=== PATIENT | male | born 1940 | race Caucasian/White ===

== ENCOUNTER 2017-07-05 22:18 | Inpatient (IN) | payer MEDICARE ==
--- NOTE | 2017-07-05 23:03 | ED Physician Chart ---
ED Chief Complaint/HPI - Patient Information Date Seen:: 07/05/17 Time Seen:: 22:50 Chief Complaint:: increasing confusion and generalized weakness History of Present Illness:: The patient reportedly has had increasing confusion and generalized weakness at his correction facility and was sent here for evaluation. Urinalysis of 3 days ago showed more than 100 WBCs and 10-25 RBCs in the urine. The bacteria was sensitive to Rocephin. Allergies:: Allergies Allergy/AdvReac Type Severity Reaction Status Date / Time hydromorphone [From Dilaudid] Allergy Verified 07/05/17 22:41 morphine Allergy Verified 07/05/17 22:41 Vitals:: Vital Signs - 8 hr 07/05/17 22:20 Temp 96.1 F HR 70 RR 18 BP 112/64 O2 Sat % 97 Historian:: Patient ED Review of Systems - Review of Systems General/Constitutional: No fever, No chills, No weight loss, Weakness, No diaphoresis, No edema, No loss of appetite Skin: No skin lesions, No rash, No bruising Head: No headache, No light-headedness Eyes: No loss of vision, No pain, No diplopia ENT: No earache, No nasal drainage, No sore throat, No tinnitus Neck: No neck pain, No swelling, No thyromegaly, No stiffness, No mass noted Cardio Vascular: No chest pain, No palpitations, No PND, No orthopnea, No edema Pulmonary: No SOB, No cough, No sputum, No wheezing GI: No nausea, No vomiting, No diarrhea, No pain, No melena, No hematochezia, No constipation, No hematemesis G/U: No dysuria, No frequency, No hematuria Musculoskeletal: No bone or joint pain, No back pain, No muscle pain Endocrine: No polyuria, No polydipsia Psychiatric: No prior psych history, No depression, No anxiety, No suicidal ideation Hematopoietic: No bruising, No lymphadenopathy Allergic/Immuno: No urticaria, No angioedema Neurological: No syncope, No focal symptoms, No weakness, No paresthesia, No headache, No seizure, No dizziness, Confusion, No vertigo ED Past Medical History - Past Medical History Past Medical History: HTN, DM, Asthma/COPD, Other (hyperlipidemia) Family History: None Social History: Non Smoker, No Alcohol Surgical History: other (prostate) Medication: Reviewed Family Medical History - Family Member Mother History Unknown: Yes ED Physical Exam - Physical Examination General/Constitutional: Well-developed, well-nourished, Alert, No distress Other Gen/Cons comments:: Patient is alert and oriented to the correct date Head: Atraumatic Eyes: Lids, conjuctiva normal, PERRL Skin: Nl inspection, No rash, No skin lesions, No ecchymosis, Well hydrated, No lymphadenopathy ENMT: External ears, nose nl, TM canals nl, Nasal exam nl, Lips, teeth, gums nl Neck: No nuchal rigidity Respiratory: Nl effort/Exclusion, Clear to Auscultation Cardio Vascular: RRR, No murmur, gallop, rubs, NL S1 S2 GI: No tenderness/rebounding/guarding : No CVA tenderness Extremities: Normal digits & nails Neuro/Psych: No focal deficits ED Labs/Radiology/EKG Results - Lab Results Comments:: Laboratory Results - last 24 hr 07/05/17 23:55 WBC 29.0 H* RBC 4.27 Hgb 11.4 L Hct 34.0 L MCV 79.7 L MCH 26.7 L MCHC Differential 33.5 RDW 15.6 Plt Count 257 MPV 6.5 - Radiology Results Results: Chest x-ray normal except for presence of a pacemaker - EKG Interpretations Rate & Rhythm: normal sinus rhythm with a rate of 73 Saline: normal Comments:: No ST or T-wave changes ED Septic Shock - . Is Septic Shock (SBP<90, OR Lactate>4 mmol\L) present?: No - <6hrs of presentation: Vital Signs: Vital Signs - 8 hr 07/05/17 22:20 Temp 96.1 F HR 70 RR 18 BP 112/64 O2 Sat % 97 ED Reassessment (Disposition) - Reassessment Reassessment Condition:: Unchanged - Diagnosis Diagnosis:: Urinary tract infection; leukocytosis - Patient Disposition Admitted to:: Med/Surg Spoke to:: Catalina Castaneda Admitting Medical Physician:: Catalina Castaneda Condition at Disposition:: Stable, Unchanged
[2017-07-06 00:07] LABS: HEMOGLOBIN 11.4 gm/dL (12-16); MANUAL DIFF REQUIRED? YES; MEAN CELL VOLUME 79.7 fl (80-99); MEAN CORPUSCULAR HEMOGLOBIN 26.7 pg (27.0-31.0); MEAN CORPUSCULAR HGB CONC 33.5 pg (28.0-36.0); MEAN PLATELET VOLUME 6.5 fl; PLATELET COUNT 257 Th/cmm (150-400); RED BLOOD COUNT 4.27 Mil/cmm (3.80-5.80); RED CELL DISTRIBUTION WIDTH 15.6 % (11.5-20.0)
[2017-07-06 00:22] LABS: URINE MICROSCOPIC INDICATED? YES; URINE SOURCE FOLEY PORT
[2017-07-06 00:26] LABS: ANION GAP 16.8 (7.0-16.0); BUN - UREA NITROGEN 35 mg/dL (7-25); CALCIUM SERUM 9.5 mg/dL (8.6-10.3); CARBON DIOXIDE 25.1 mEq/L (21.0-31.0); CHLORIDE 91 mEq/L (98-107); CREATININE - SERUM 1.9 mg/dL (0.7-1.3); POTASSIUM SERUM 4.9 mEq/L (3.5-5.1); SODIUM SERUM 128 mEq/L (136-145)
[2017-07-06] MEDS ORDERED: cefTRIAXone 1 GM in Sodium Chloride 0.9% 50 ML IV ONE (00:37)
[2017-07-06 00:39] LABS: URINE BILIRUBIN NEGATIVE (NEGATIVE); URINE BLOOD LARGE (NEGATIVE); URINE GLUCOSE (UA) >=1000 mg/dL (NEGATIVE); URINE KETONE TRACE mg/dL (NEGATIVE); URINE LEUKOCYTE ESTERASE MODERATE (NEGATIVE); URINE NITRATE POSITIVE (NEGATIVE); URINE PROTEIN 100 mg/dL (NEGATIVE); URINE UROBILINOGEN 0.2 E.U./dL (0.2 - 1.0)
[2017-07-06 00:42] LABS: GLUCOSE 480 mg/dL (70-105)
[2017-07-06 00:50] LABS: URINE CLARITY HAZY (CLEAR); URINE COLOR YELLOW
[2017-07-06] MEDS ORDERED: Sodium Chloride 0.9% 1,000 ML IV ONE ×2 (00:52→06:51)
[2017-07-06] MEDS ORDERED: INSULIN HUMAN REGULAR 100 UNITS/ML UNIT SUBQ ONE ×2 (00:53→02:11)
[2017-07-06 00:58] LABS: URINE WBC >100 /hpf (0-5)
[2017-07-06 00:59] LABS: URINE BACTERIA MODERATE /hpf (NONE SEEN); URINE EPITHELIAL CELLS FEW /lpf (FEW)
[2017-07-06 01:06] LABS: BAND NEUTROPHILE 4 % (0-10); LYMPHOCYTE 10 % (20-50); NEUTROPHILS 86 % (40-80); PLATELET ESTIMATE ADEQUATE (NORMAL); TOTAL CELLS COUNTED 100
[2017-07-06] MEDS ORDERED: INSULIN ASPART, RECOMBINANT 100 UNITS/ML SUBQ ONE (01:06)
[2017-07-06] MEDS ORDERED: INSULIN HUMAN REGULAR 100 UNITS/ML UNIT ONE ×2 (01:16→02:16)
[2017-07-06] MEDS ORDERED: Influenza Vaccine 0.5 mL Syr IM ONE (03:34)
[2017-07-06] MEDS ORDERED: Pneumococcal Vaccine 0.5 mL Vial IM ONE (03:34)
[2017-07-06 03:35] VITALS: BP 101/57
[2017-07-06 06:20] LABS: BASOPHILE ABSOLUTE 0.1 Th/cumm (0-0.2); HEMOGLOBIN 10.2 gm/dL (12-16); MEAN PLATELET VOLUME 6.5 fl
[2017-07-06 06:26] LABS: ANION GAP 12.9 (7.0-16.0); BUN - UREA NITROGEN 34 mg/dL (7-25); CALCIUM SERUM 9.1 mg/dL (8.6-10.3); CARBON DIOXIDE 26.5 mEq/L (21.0-31.0); CHLORIDE 96 mEq/L (98-107); CREATININE - SERUM 1.8 mg/dL (0.7-1.3); POTASSIUM SERUM 4.4 mEq/L (3.5-5.1); SODIUM SERUM 131 mEq/L (136-145)
[2017-07-06 06:27] LABS: % BASOPHILS 0.4 % (0.0-2.0); % LYMPHOCYTES 4.3 % (20.0-50.0); % NEUTROPHILS 86.1 % (40.0-80.0); HEMATOCRIT 30.5 % (41.0-60); LYMPHOCYTE ABSOLUTE 0.9 Th/cmm (1.5-3.0); MEAN CELL VOLUME 78.6 fl (80-99); MEAN CORPUSCULAR HEMOGLOBIN 26.4 pg (27.0-31.0); MEAN CORPUSCULAR HGB CONC 33.5 pg (28.0-36.0); MONOCYTE ABSOLUTE 1.9 Th/cmm (0.3-1.0); NEUTROPHILE ABSOLUTE 17.8 Th/cmm (1.8-8.0); PLATELET COUNT 262 Th/cmm (150-400); RED BLOOD COUNT 3.89 Mil/cmm (3.80-5.80); RED CELL DISTRIBUTION WIDTH 15.9 % (11.5-20.0)
[2017-07-06 06:29] LABS: GLUCOSE 263 mg/dL (70-105)
[2017-07-06 06:33] LABS: % EOSINOPHILS 0.1 % (0.0-5.0); % MONOCYTES 9.1 % (2.0-10.0); WHITE BLOOD COUNT 20.7 Th/cmm (4.8-10.8)
[2017-07-06] MEDS: Albuterol Nebulizer 2.5mg/3mL HHN SCH ×5 (07:54→23:31)
[2017-07-06] MEDS ORDERED: Azithromycin 500 mg in 0.9% NS 250 mL IV ONE (08:00)
[2017-07-06] MEDS ORDERED: Magnesium Hydroxide (MOM) 30 mL UDC PO PRN (08:17)
[2017-07-06] MEDS ORDERED: Fleet Enema 135 mL RC PRN (08:17)
[2017-07-06] MEDS ORDERED: Dextrose 50% 50 mL Abboject IVP PRN (08:17)
[2017-07-06] MEDS ORDERED: GLUCAGON HCl 1 MG KIT IM PRN (08:17)
--- NOTE | 2017-07-06 08:19 | Diagnostic Imaging Report ---
Portable chest x-ray Time: 2348 hours History: Pneumonia Allowing for portable technique the heart size is normal. No focal pulmonary parenchymal processes. No hilar or mediastinal abnormalities. Left shoulder prosthesis is noted. Aortic arch calcified. Impression: No acute abnormalities.
[2017-07-06] MEDS: Ferrous Sulfate 325 MG TAB PO SCH (10:08)
[2017-07-06] MEDS: Pantoprazole 40 mg EC Tab PO SCH (10:09)
[2017-07-06] MEDS: Sodium Chloride 0.9% 1,000 ML IV SCH (10:11)
[2017-07-06] MEDS ORDERED: INSULIN ASPART, RECOMBINANT 100 UNITS/ML SUBQ SCH ×2 (11:30→12:00)
[2017-07-06] MEDS ORDERED: INSULIN ASPART SLIDING SCALE 100 UNITS/ML UNIT SUBQ SCH ×2 (13:03→16:30)
[2017-07-06] MEDS: INSULIN ASPART SLIDING SCALE 100 UNITS/ML UNIT SUBQ SCH ×3 (13:39→21:10)
--- NOTE | 2017-07-06 16:19 | Consultation ---
Consult Note - Consult Note Service Date: 07/06/17 Referring Physician: Catalina Castaneda Consult Note: PHYSICIAN Consultation Note: Date of Admission: 07/06/17 Purpose of Consultation: Chief Complaint: Patient MABLE PARKINSON was admitted to location Medical/ Surgical Unit I with UTI. History of Present Illness: Patient is a 77-year-old male with a past medical history hypertension, diabetes mellitus type 2, COPD, hyperlipidemia, prostate cancer treated at [facility]. No visible brought to the ER for further evaluation and management as patient had developed the hematuria. Patient also complained of fever and chills. Patient was diagnosed to have UTI and sepsis. He was started on Rocephin and Zithromax. ID consult was called for antibiotic management. Past Medical History: hypertension, diabetes mellitus type 2, COPD, hyperlipidemia, prostate cancer Allergies Allergy/AdvReac Type Severity Reaction Status Date / Time hydromorphone [From Dilaudid] Allergy Verified 07/05/17 22:41 morphine Allergy Verified 07/05/17 22:41 Vital Signs Temp 100.7 F 07/06/17 06:00 Pulse 66 07/06/17 14:26 Resp 18 07/06/17 14:26 BP 146/73 07/06/17 10:08 Pulse Ox 98 07/06/17 14:26 Intake & Output 07/05/17 07/06/17 07/06/17 18:59 06:59 18:59 Output Total 450 Balance -450 Weight (lbs) 90.718 kg 90.718 kg Output: Urine 450 Laboratory Results - last 24 hr 07/06/17 07/06/17 07/06/17 05:35 05:35 05:35 WBC 20.7 H* RBC 3.89 Hgb 10.2 L Hct 30.5 L MCV 78.6 L MCH 26.4 L MCHC Differential 33.5 RDW 15.9 Plt Count 262 MPV 6.5 Neutrophils % 86.1 H Lymphocytes % 4.3 L Monocytes % 9.1 Eosinophils % 0.1 Basophils % 0.4 Sodium 131 L Potassium 4.4 Chloride 96 L Carbon Dioxide 26.5 Anion Gap 12.9 BUN 34 H Creatinine 1.8 H Est GFR ( Amer) TNP Est GFR (Non-Af Amer) TNP BUN/Creatinine Ratio 18.9 Glucose 263 H D POC Glucose Whole Bld Lactic Acid 1.74 Calcium 9.1 07/06/17 11:51 WBC RBC Hgb Hct MCV MCH MCHC Differential RDW Plt Count MPV Neutrophils % Lymphocytes % Monocytes % Eosinophils % Basophils % Sodium Potassium Chloride Carbon Dioxide Anion Gap BUN Creatinine Est GFR ( Amer) Est GFR (Non-Af Amer) BUN/Creatinine Ratio Glucose POC Glucose 426 H Whole Bld Lactic Acid Calcium Home Medication Medication Instructions Recorded Type Acetaminophen [Tylenol] 650 mg PO Q4HR PRN 07/05/17 History Amiodarone [Cordarone] 200 mg PO DAILY 07/05/17 History Aspirin [Adult Low Dose Aspirin EC] 81 mg PO DAILY 07/05/17 History Bisacodyl [Dulcolax 10 Mg Supp] 10 mg RC DAILY PRN 07/05/17 History Bisacodyl [Dulcolax 5 Mg Ec Tab] 5 mg PO DAILY PRN 07/05/17 History Carvedilol [Coreg] 12.5 mg PO BID 07/05/17 History Dextrose 50% [D50w] 50 ml IVP DAILY PRN 07/05/17 History Dextrose [Glucose Gel] 15 gm PO DAILY PRN 07/05/17 History Ferrous Sulfate [Iron] 325 mg PO DAILY 07/05/17 History Fleet Enema [Fleet Enema] 1 dose RC DAILY PRN 07/05/17 History Folic Acid [Folate*] 1 mg PO DAILY 07/05/17 History Glucagon,Human Recombinant 1 mg IM DAILY PRN 07/05/17 History [Glucagon Emergency Kit] Hydralazine [Apresoline*] 10 mg PO Q6HR PRN 07/05/17 History Insulin Aspart, Recombinant 8 unit SUBQ TIDWM 07/05/17 History [NovoLOG] Insulin Aspart, Recombinant See Protocol SUBQ ACHS 07/05/17 History [NovoLOG] Insulin Glargine, Recombinan 32 units SUBQ HS 07/05/17 History [Lantus] Magnesium Hydroxide [Milk of 30 ml PO DAILY PRN 07/05/17 History Magnesia] Nitrofurantoin Monohydrate 100 mg PO DAILY 07/05/17 History [Macrobid*] Nitroglycerin 0.4 mg SL Q5MIN PRN MDD 3 TABS 07/05/17 History Ondansetron [Zofran ODT] 4 mg PO Q6HR PRN 07/05/17 History Pantoprazole [Protonix] 40 mg PO DAILY 07/05/17 History Sennosides A and B [Senna] 8.6 mg PO BID 07/05/17 History Simvastatin [Zocor] 80 mg PO HS 07/05/17 History Sodium Bicarbonate 650 mg PO TID 07/05/17 History Thiamine [Vitamin B1] 100 mg PO DAILY 07/05/17 History amLODIPine Besylate [Norvasc] 10 mg PO DAILY 07/05/17 History risperiDONE [RisperDAL] 0.5 mg PO HS 07/05/17 History Current Medications Generic Name Dose Route Start Last Admin Trade Name Freq PRN Reason Stop Dose Admin Acetaminophen 650 mg 07/06/17 06:54 07/06/17 07:10 Tylenol PO 09/04/17 06:53 650 mg Q4H PRN Administration Fever > 100 Acetaminophen 650 mg 07/06/17 08:17 Tylenol PO 09/04/17 08:16 Q4HR PRN Pain or Fever >101 Albuterol Sulfate 2.5 mg 07/06/17 07:00 07/06/17 14:25 Albuterol 2.5mg/3ml Neb Ud HHN 09/04/17 06:59 2.5 mg Q4HRT JESUS Administration Amiodarone HCl 200 mg 07/06/17 09:00 07/06/17 10:09 Cordarone PO 09/04/17 08:59 200 mg DAILY JESUS Administration Amlodipine Besylate 10 mg 07/06/17 09:00 07/06/17 10:08 Norvasc PO 09/04/17 08:59 10 mg DAILY JESUS Administration Aspirin 81 mg 07/06/17 09:00 07/06/17 10:08 Ecotrin PO 09/04/17 08:59 81 mg DAILY JESUS Administration Bisacodyl 10 mg 07/06/17 08:17 Dulcolax 10 Mg Supp RC 09/04/17 08:16 DAILY PRN IF MOM INEFFECTIVE Bisacodyl 5 mg 07/06/17 08:17 Dulcolax 5 Mg Ec Tab PO 09/04/17 08:16 DAILY PRN Constipation Carvedilol 12.5 mg 07/06/17 09:00 07/06/17 10:07 Coreg PO 09/04/17 08:59 12.5 mg BID JESUS Administration Dextrose 50 ml 07/06/17 08:17 D50w IVP 09/04/17 08:16 DAILY PRN If BS below 70/not tolerate po Dextrose 15 gm 07/06/17 08:17 Glutose 40% PO 09/04/17 08:16 DAILY PRN BS below 70 if take po/call Ferrous Sulfate 325 mg 07/06/17 09:00 07/06/17 10:08 Iron PO 09/04/17 08:59 325 mg DAILY JESUS Administration Folic Acid 1 mg 07/06/17 09:00 07/06/17 10:08 Folate PO 09/04/17 08:59 1 mg DAILY JESUS Administration Glucagon 1 mg 07/06/17 08:17 Glucagen IM DAILY PRN BS below 70 if not take po Hydralazine HCl 10 mg 07/06/17 08:17 Apresoline PO 09/04/17 08:16 Q6HR PRN SBP ABOVE 160 Azithromycin 500 mg/ Sodium 250 mls @ 250 mls/hr 07/07/17 09:00 Chloride IV 09/05/17 08:59 Q24HR JESUS Ceftriaxone Sodium 1 gm/ 50 mls @ 100 mls/hr 07/06/17 21:00 Sodium Chloride IV 09/04/17 20:59 Q24H JESUS Sodium Chloride 1,000 mls @ 100 mls/hr 07/06/17 07:00 07/06/17 10:11 Nacl 0.9% IV 09/04/17 06:59 100 mls/hr .Q10H JESUS Administration Insulin Aspart 0 units 07/06/17 13:15 07/06/17 13:39 Novolog Insulin Sliding Scale SUBQ 09/04/17 13:14 12 units ACHS JESUS Administration Protocol Insulin Detemir 32 units 07/06/17 21:00 Levemir Insulin SUBQ 09/04/17 20:59 HS JESUS Magnesium Hydroxide 30 ml 07/06/17 08:17 Milk Of Magnesia PO 09/04/17 08:16 DAILY PRN IF NO BM X 2 DAYS Nitrofurantoin Macrocrystals 100 mg 07/06/17 09:00 07/06/17 12:21 Macrobid PO 09/04/17 08:59 Not Given DAILY [facility] Protocol Nitroglycerin 0.4 mg 07/06/17 08:17 Nitrostat SL 09/04/17 08:16 Q5MIN PRN Chest Pain Ondansetron HCl 4 mg 07/06/17 08:17 Zofran Odt PO 09/04/17 08:16 Q6HR PRN Nausea Pantoprazole Sodium 40 mg 07/06/17 09:00 07/06/17 10:09 Protonix PO 09/04/17 08:59 40 mg DAILY JESUS Administration Risperidone 0.5 mg 07/06/17 21:00 Risperdal PO 09/04/17 20:59 HS JESUS Protocol Senna 8.6 mg 07/06/17 09:00 07/06/17 10:10 Senna PO 09/04/17 08:59 8.6 mg BID JESUS Administration Simvastatin 80 mg 07/06/17 21:00 Zocor PO 09/04/17 20:59 HS JESUS Sodium Bicarbonate 650 mg 07/06/17 09:00 07/06/17 15:56 Sodium Bicarbonate PO 09/04/17 08:59 650 mg TID JESUS Administration Protocol Sodium Phosphate 135 ml 07/06/17 08:17 Fleet Enema RC 09/04/17 08:16 DAILY PRN IF MOM/DULCOLAX R INEFFECTIVE Thiamine HCl 100 mg 07/06/17 09:00 07/06/17 10:09 Vitamin B1 PO 09/04/17 08:59 100 mg DAILY JESUS Administration Review of Systems: A 12 point ROS was reviewed with the pertinent positive and negatives noted in the HPI. Social History Smoking Status Never smoker Family Medical History Family Medical History Start: 07/06/17 02: 43 Freq: ONCE Status: Active Document 07/06/17 03:18 KENDELLCAMILLECHAPARRITA (Rec: 07/06/17 03:19 KENDELLCAMILLECHAPARRITA [id number]) Family Medical History Mother History Unknown Yes Physical Exam: General: Comfortable, not in acute distress. HEENT: Head: Normocytic, atraumatic. Oral cavity: Moist, pink tongue. Eyes: Pallor is present icterus. PERRLA EOMI. Neck: Supple, no Barb L use of accessory muscles. S1 and S2 w Cardio: S1 and S2 within normal limits. Respiratory: Vesicular breath sound no crackles or wheezing. Abdominal: Soft, nontender, nondistended bowel sounds present Genital/Urinary: Soft, nontender, nondistended bowel symptoms present Extremities: No cyanosis, no clubbing, no edema Neurological: Alert and awake, oriented 3. Assessment: 1. Sepsis. 2.. UTI. Pyelonephritis 3. History of prostate CA. 4. Diabetes mellitus type 2. 5. Hypertension. 6. COPD asthma. Plan: Will continue Rocephin and discontinued Zithromax. Thank you, Dr. Castaneda for involving me in taking care of this patient. Signed, Humberto Pearce M.D. [id number]/06/[id number]
--- NOTE | 2017-07-06 16:54 | Consultation ---
DATE OF CONSULTATION: 07/06/2017 UROLOGY CONSULTATION REASON FOR CONSULTATION: Seen for urinary tract infection, possibly some hematuria and history of prostate cancer with altered level of consciousness. HISTORY OF PRESENT ILLNESS: The patient is a 77-year-old male who was transferred here from a halfway because of confusion and elevated white count as well as urinary tract infection with an indwelling Alvarado. The patient gives a history that he had radical prostatectomy about a month ago at [facility] and the catheter has been present since then, but this is difficult to verify. He apparently has an appointment at [facility] for followup, but developed this problem before he could make that appointment. The records also indicate that he had a bladder augmentation at the same time as a radical prostatectomy. MEDICAL HISTORY: Includes diabetes, hypertension, COPD, and hyperlipidemia. SOCIAL HISTORY: Denies smoking, alcohol, or drug use. HOME MEDICATIONS: Hydralazine, amiodarone, amlodipine, aspirin, Coreg, iron, folic acid, insulin, nitrofurantoin, Protonix, Risperdal, and senna. Also takes Zocor, sodium bicarbonate, and vitamin B1. ALLERGY: TO HYDROMORPHONE AND MORPHINE. REVIEW OF SYSTEMS: Confusion, seems to have improved. No headache or seizures noted. Denied any fever or chills. No nausea, vomiting, or abdominal pain. Denies diarrhea. No chest pain, coughing, or shortness of breath. Alvarado catheter draining clear urine. Some leakage around it as well. No skin or joint problems. PHYSICAL EXAMINATION: GENERAL: On exam, he is awake. He is alert. He answers most questions appropriately, but seems to be slightly confused. VITAL SIGNS: Heart rate 66, blood pressure 146/73, and last temperature was 100.7. HEAD AND NECK: Normocephalic. Trachea is central. Pupils equal and reactive. No jaundice. Thyroid and lymph nodes are not palpable. Carotid bruit absent. CHEST: Symmetrical. LUNGS: Clear. No rales or rhonchi. HEART: Sounds normal in sinus rhythm, no murmur. ABDOMEN: Soft, nontender, no organomegaly, mass, or hernia. Midline scar of prostatectomy noted. GENITALIA: Unremarkable. Alvarado catheter draining clear urine. RECTAL: Sphincter tone normal. Prostatic fossa empty consistent with prostatectomy. EXTREMITIES: 1+ edema, no lymphadenopathy. NEUROLOGIC: Nonfocal. Moves all 4 limbs. LABORATORY DATA: White count was 29,000 yesterday, it is 20.7 today, hemoglobin 10.2, platelets 262. Sodium 131, BUN 34, creatinine 1.8 down from 1.9, glucose was 480 yesterday, today 263 and again 426. Lactic acid elevated to 2.7 yesterday and now down to 1.7. Urine showed large amount of blood, nitrites, and white cells consistent with infection. IMPRESSION: 1. Urinary tract infection, probably from indwelling Alvarado. Recommend bladder irrigation frequently to treat the infection until we get a definitive diagnosis. Reviewed the records from [facility] and recommend follow up at [facility] to decide when the catheter is supposed to come out after a major reconstructive surgery of the bladder. 2. History of diabetes and hypertension; requires tight blood sugar controls to help with the sepsis. JOB# [id number]
[2017-07-06 16:58] LABS: A1C % 8.9 % (4.0-6.0)
--- NOTE | 2017-07-06 18:24 | History & Physical ---
ADMIT DATE: 07/06/2017 HISTORY OF PRESENT ILLNESS: The patient was admitted because of increasing confusion and weakness. The patient is known to have a history of prostate cancer, history of prostate problem. The patient [facility], increasingly weak and he was found to have a high white count and hematuria, was sent to the Emergency Room, was seen, the patient had a UTI and sepsis. The patient was admitted. White count was very high. The patient was confused. The patient, again, has history of CA of the prostate. The patient also is known to have history of hypertension, diabetes, hyperlipidemia and COPD. PAST MEDICAL HISTORY: As enumerated above. PAST SURGICAL HISTORY: As enumerated above. FAMILY HISTORY: Unremarkable. PHYSICAL EXAMINATION: HEAD: Normal. ENT: Normal. NECK: Supple, nontender. LUNGS: Clear. CARDIOVASCULAR SYSTEM: S1, S2 heard. ABDOMEN: Soft. Bowel sounds are heard. CENTRAL NERVOUS SYSTEM: Decreased sensorium. Confusion. DIAGNOSES: Acute encephalopathy secondary to sepsis, urinary infection, leukocytosis, history of prostate CA, history of hypertension, history of hyperlipidemia, history of COPD. PLAN: The patient is going to be admitted. IV antibiotics will be given and I will have Urology, Dr. Duron see the patient as well as ID doctor see the patient. I will follow the patient. JOB# [id number]
[2017-07-06] MEDS ORDERED: cefTRIAXone 1 GM in Sodium Chloride 0.9% 50 ML IV SCH (21:00)
[2017-07-06] MEDS: Insulin Detemir 100 units/mL 10mL Vial SUBQ SCH (21:11)
[2017-07-07] MEDS: Albuterol Nebulizer 2.5mg/3mL HHN SCH ×5 (03:28→20:11)
[2017-07-07] MEDS: Sodium Chloride 0.9% 1,000 ML IV SCH (06:52)
--- NOTE | 2017-07-07 08:49 | General Progress Note ---
Subjective - Review of Systems Events since last encounter: patient seen and examined confused on antibiotics Objective - Results Result Diagrams: 07/06/17 05:35 07/06/17 05:35 Recent Labs: Laboratory Last Values WBC 20.7 Th/cmm (4.8-10.8) H* 07/06/17 05:35 RBC 3.89 Mil/cmm (3.80-5.80) 07/06/17 05:35 Hgb 10.2 gm/dL (12-16) L 07/06/17 05:35 Hct 30.5 % (41.0-60) L 07/06/17 05:35 MCV 78.6 fl (80-99) L 07/06/17 05:35 MCH 26.4 pg (27.0-31.0) L 07/06/17 05:35 MCHC Differential 33.5 pg (28.0-36.0) 07/06/17 05:35 RDW 15.9 % (11.5-20.0) 07/06/17 05:35 Plt Count 262 Th/cmm (150-400) 07/06/17 05:35 MPV 6.5 fl 07/06/17 05:35 Neutrophils % 86.1 % (40.0-80.0) H 07/06/17 05:35 Band Neutrophils % 4 % (0-10) 07/05/17 23:55 Lymphocytes % 4.3 % (20.0-50.0) L 07/06/17 05:35 Monocytes % 9.1 % (2.0-10.0) 07/06/17 05:35 Eosinophils % 0.1 % (0.0-5.0) 07/06/17 05:35 Basophils % 0.4 % (0.0-2.0) 07/06/17 05:35 Neutrophils (Manual) 86 % (40-80) H 07/05/17 23:55 Lymphocytes 10 % (20-50) L 07/05/17 23:55 Platelet Estimate ADEQUATE (NORMAL) 07/05/17 23:55 Sodium 131 mEq/L (136-145) L 07/06/17 05:35 Potassium 4.4 mEq/L (3.5-5.1) 07/06/17 05:35 Chloride 96 mEq/L (98-107) L 07/06/17 05:35 Carbon Dioxide 26.5 mEq/L (21.0-31.0) 07/06/17 05:35 Anion Gap 12.9 (7.0-16.0) 07/06/17 05:35 BUN 34 mg/dL (7-25) H 07/06/17 05:35 Creatinine 1.8 mg/dL (0.7-1.3) H 07/06/17 05:35 Est GFR ( Amer) TNP 07/06/17 05:35 Est GFR (Non-Af Amer) TNP 07/06/17 05:35 BUN/Creatinine Ratio 18.9 07/06/17 05:35 Glucose 263 mg/dL (70-105) H D 07/06/17 05:35 POC Glucose 148 MG/DL (70 - 105) H 07/07/17 06:16 Hemoglobin A1c % 8.9 % (4.0-6.0) H 07/05/17 23:55 Whole Bld Lactic Acid 1.74 mmol/L (0.60-1.99) 07/06/17 05:35 Calcium 9.1 mg/dL (8.6-10.3) 07/06/17 05:35 Ammonia 41 umol/L (16-53) 07/05/17 23:55 Urine Source [place] 07/06/17 00:15 Urine Color YELLOW 07/06/17 00:15 Urine Clarity HAZY (CLEAR) 07/06/17 00:15 Urine pH 6.0 (4.6 - 8.0) 07/06/17 00:15 Ur Specific [place] 1.015 (1.005-1.030) 07/06/17 00:15 Urine Protein 100 mg/dL (NEGATIVE) H 07/06/17 00:15 Urine Glucose (UA) >=1000 mg/dL (NEGATIVE) H 07/06/17 00:15 Urine Ketones TRACE mg/dL (NEGATIVE) 07/06/17 00:15 Urine Blood LARGE (NEGATIVE) H 07/06/17 00:15 Urine Nitrate POSITIVE (NEGATIVE) H 07/06/17 00:15 Urine Bilirubin NEGATIVE (NEGATIVE) 07/06/17 00:15 Urine Urobilinogen 0.2 E.U./dL (0.2 - 1.0) 07/06/17 00:15 Ur Leukocyte Esterase MODERATE (NEGATIVE) H 07/06/17 00:15 Urine RBC 2-5 /hpf (0-5) H 07/06/17 00:15 Urine WBC >100 /hpf (0-5) H 07/06/17 00:15 Ur Epithelial Cells FEW /lpf (FEW) 07/06/17 00:15 Urine Bacteria MODERATE /hpf (NONE SEEN) H 07/06/17 00:15 - Physical Exam Vitals and I&O: Vital Signs Temp 96.9 F 07/07/17 04:00 Pulse 80 07/07/17 07:17 Resp 18 07/07/17 07:17 BP 140/61 07/07/17 04:00 Pulse Ox 95 07/07/17 07:17 Intake & Output 07/06/17 07/07/17 07/07/17 18:59 06:59 18:59 Intake Total 1500 Output Total 1500 Balance 0 Weight (lbs) 90.718 kg 89.811 kg Intake: Intake, IV Amount 1000 Sodium Chloride 0.9% 1, 1000 000 ml @ 100 mls/hr IV . Q10H [facility] Rx#:[id number] Oral 500 Output: Urine 1500 Active Medications: Current Medications Acetaminophen (Tylenol) 650 mg PO Q4H PRN PRN Reason: Fever > 100 Stop: 09/04/17 06:53 Last Admin: 07/06/17 21:09 Dose: 650 mg Acetaminophen (Tylenol) 650 mg PO Q4HR PRN PRN Reason: Pain or Fever >101 Stop: 09/04/17 08:16 Albuterol Sulfate (Albuterol 2.5mg/3ml Neb Ud) 2.5 mg HHN Q4HRT [facility] Stop: 09/04/17 06:59 Last Admin: 07/07/17 07:17 Dose: Not Given Amiodarone HCl (Cordarone) 200 mg PO DAILY [facility] Stop: 09/04/17 08:59 Last Admin: 07/06/17 10:09 Dose: 200 mg Amlodipine Besylate (Norvasc) 10 mg PO DAILY [facility] Stop: 09/04/17 08:59 Last Admin: 07/06/17 10:08 Dose: 10 mg Aspirin (Ecotrin) 81 mg PO DAILY [facility] Stop: 09/04/17 08:59 Last Admin: 07/06/17 10:08 Dose: 81 mg Bisacodyl (Dulcolax 10 Mg Supp) 10 mg RC DAILY PRN PRN Reason: IF MOM INEFFECTIVE Stop: 09/04/17 08:16 Bisacodyl (Dulcolax 5 Mg Ec Tab) 5 mg PO DAILY PRN PRN Reason: Constipation Stop: 09/04/17 08:16 Carvedilol (Coreg) 12.5 mg PO BID [facility] Stop: 09/04/17 08:59 Last Admin: 07/06/17 19:33 Dose: Not Given Dextrose (D50w) 50 ml IVP DAILY PRN PRN Reason: If BS below 70/not tolerate po Stop: 09/04/17 08:16 Dextrose (Glutose 40%) 15 gm PO DAILY PRN PRN Reason: BS below 70 if take po/call md Stop: 09/04/17 08:16 Ferrous Sulfate (Iron) 325 mg PO DAILY [facility] Stop: 09/04/17 08:59 Last Admin: 07/06/17 10:08 Dose: 325 mg Folic Acid (Folate) 1 mg PO DAILY [facility] Stop: 09/04/17 08:59 Last Admin: 07/06/17 10:08 Dose: 1 mg Glucagon (Glucagen) 1 mg IM DAILY PRN PRN Reason: BS below 70 if not take po Hydralazine HCl (Apresoline) 10 mg PO Q6HR PRN PRN Reason: SBP ABOVE 160 Stop: 09/04/17 08:16 Ceftriaxone Sodium 1 gm/ (Sodium Chloride) 50 mls @ 100 mls/hr IV Q24H [facility] Stop: 09/04/17 20:59 Last Admin: 07/06/17 21:12 Dose: 100 mls/hr Sodium Chloride (Nacl 0.9%) 1,000 mls @ 100 mls/hr IV .Q10H [facility] Stop: 09/04/17 06:59 Last Admin: 07/07/17 06:52 Dose: 100 mls/hr Insulin Aspart (Novolog Insulin Sliding Scale) 0 units SUBQ ACHS JESUS PRN Reason: Protocol Stop: 09/04/17 13:14 Last Admin: 07/06/17 21:10 Dose: 6 units Insulin Detemir (Levemir Insulin) 32 units SUBQ HS [facility] Stop: 09/04/17 20:59 Last Admin: 07/06/17 21:11 Dose: 32 units Lorazepam (Ativan) 1 mg IVP Q4HR PRN; Protocol PRN Reason: agitation Stop: 09/05/17 01:46 Magnesium Hydroxide (Milk Of Magnesia) 30 ml PO DAILY PRN PRN Reason: IF NO BM X 2 DAYS Stop: 09/04/17 08:16 Nitrofurantoin Macrocrystals (Macrobid) 100 mg PO DAILY JESUS PRN Reason: Protocol Stop: 09/04/17 08:59 Last Admin: 07/06/17 12:21 Dose: Not Given Nitroglycerin (Nitrostat) 0.4 mg SL Q5MIN PRN PRN Reason: Chest Pain Stop: 09/04/17 08:16 Ondansetron HCl (Zofran Odt) 4 mg PO Q6HR PRN PRN Reason: Nausea Stop: 09/04/17 08:16 Pantoprazole Sodium (Protonix) 40 mg PO DAILY [facility] Stop: 09/04/17 08:59 Last Admin: 07/06/17 10:09 Dose: 40 mg Quetiapine Fumarate (Seroquel) 12.5 mg PO TID JESUS PRN Reason: Protocol Stop: 09/05/17 08:59 Risperidone (Risperdal) 0.5 mg PO HS [facility] PRN Reason: Protocol Stop: 09/04/17 20:59 Senna (Senna) 8.6 mg PO BID [facility] Stop: 09/04/17 08:59 Last Admin: 07/06/17 17:10 Dose: 8.6 mg Simvastatin (Zocor) 80 mg PO HS [facility] Stop: 09/04/17 20:59 Last Admin: 07/06/17 21:10 Dose: 80 mg Sodium Bicarbonate (Sodium Bicarbonate) 650 mg PO TID JESUS PRN Reason: Protocol Stop: 09/04/17 08:59 Last Admin: 07/06/17 21:09 Dose: 650 mg Sodium Phosphate (Fleet Enema) 135 ml RC DAILY PRN PRN Reason: IF MOM/DULCOLAX R INEFFECTIVE Stop: 09/04/17 08:16 Thiamine HCl (Vitamin B1) 100 mg PO DAILY [facility] Stop: 09/04/17 08:59 Last Admin: 07/06/17 10:09 Dose: 100 mg Nutritional Asmnt/Malnutr-PDOC - Dietary Evaluation Malnutrition Findings (Please click <Entered> for more info): Nutritional Asmnt/Malnutrition Start: 07/06/17 16: 01 Text: Status: Complete Freq: Document 07/06/17 16:01 BRIDGETJEN (Rec: 07/06/17 16:23 RICCARDO [email or web address]) Nutritional Asmnt/Malnutrition Patient General Information Nutritional Screening High Risk Consult Diagnosis UTI Pertinent Medical Hx/Surgical Hx HTN, DM, Asthma, COPD, hyperlipidemia, prostate surgery Subjective Information Pt seen sitting up in bed having lunch at time of visit. Pt stated the meal was great, his appetite was good. Per EMR, pt consumed 100% breakfast today. Current Diet Order/ Nutrition Support low sodium Pertinent Medications d50w, iron, folate, novolog, levemir, protonix, senna, nacl 0.9%, vit B1 Pertinent Labs 07/06 na 131, cl 96, bun 34, cr 1.8, glucose 263, POC 426 07/05 glucose 480, POC 410 Nutritional Hx/Data Height 1.8 m Height (Calculated Centimeters) 180.3 Current Weight (lbs) 90.718 kg Weight (Calculated Kilograms) 90.7 Weight (Calculated Grams) 86401.5 [place] Body Weight 172 Body Mass Index (BMI) 27.8 Weight Status Overweight GI Symptoms GI Symptoms None Last BM no record Difficult in: None Skin Integrity/Comment: intact Current %PO Good (75-100%) Estimated Nutritional Goals Calories/Kcals/Kg 25-30 based on IBW 78kg Kcals Calculated 1820-3265 Protein g/k-1.2 Protein Calculated 78-94 Fluid: ml 1950-2340ml (1ml/kcal) Nutritional Problem 1. Problem Problem altered nutrition related lab Etiology hx of DM Signs/Symptoms: glucose 263, POC 426 Malnutrition Alert Protein-Calorie Malnutrition N/A Is there a minimum of two criteria No selected? Query Text:Check all the applicable criteria. A minimum of two criteria are recommended for diagnosis of either severe or non-severe malnutrition. Intervention/Recommendation Comments 1. Recommend adding CCHO-60gm for optimal glycemic control. RN notified. 2. Monitor PO intake, wt, labs and skin integrity 3. F/U as moderate risk in 3-5 days, 07/09-07/11 Expected Outcomes/Goals Expected Outcomes/Goals 1. PO intake to meet at least 75% of nutritional needs. 2. Wt stability, skin to remain intact, labs to approach WNL.
[2017-07-07] MEDS ORDERED: Azithromycin 500 MG in Sodium Chloride 0.9% 250 ML IV SCH (09:00)
--- NOTE | 2017-07-07 09:20 | Consultation ---
DATE OF CONSULTATION: 07/07/2017 AGE: 77. SEX: Male. PHYSICIAN: Dr. Castaneda. [employer] SUPERVISOR: Dr. Guerra. TYPE OF THE REPORT: Psychiatric consult. REASON FOR THE CONSULT: Agitation. HISTORY OF PRESENT ILLNESS: The patient is a 77-year-old male who was admitted to the hospital. The patient has been agitated and confused and aggressive. He has not been able to follow any of staff directions. He also wants to jump bed rails and to get into out of bed. He also has not been able to follow any directions. The patient also has been easily agitated and easily irritable. Although the patient was given Ativan, yet he is still agitated and in irritable mood. He was admitted with high blood count as well as hematuria. The patient also has been increasingly weak in the detention and the staff there was concerned about his condition. PAST PSYCHIATRIC HISTORY: Noncontributory. PAST MEDICAL HISTORY: The patient has prostatic cancer and status post surgical intervention. The patient also has hyperlipidemia and COPD as well as noninsulin dependent diabetes mellitus and hypertension. SOCIAL HISTORY: The patient currently lives in [facility]. No known alcohol or street drug use. MENTAL STATUS EXAM: The patient appears his stated age. Irritable mood. Angry. Restless. Confused. Unable to answer any of my questions coherently. The patient did not answer questions regarding hallucinations or delusions or suicide or homicide. The patient is slightly sedated, but able to answer questions. Poor insight just because of confusion. PRIMARY DIAGNOSIS: Unspecified psychosis. TREATMENT PLAN: We will reevaluate the patient. We will continue Ativan on a p.r.n. basis. We will give a small dose of Seroquel to control his agitation and his irritability and his behavior problems and we will continue to follow up. Thanks Dr. Castaneda and we will follow up with you. JOB# [id number]
[2017-07-07] MEDS: Pantoprazole 40 mg EC Tab PO SCH (09:40)
[2017-07-07] MEDS: Ferrous Sulfate 325 MG TAB PO SCH (09:41)
[2017-07-07] MEDS: INSULIN ASPART SLIDING SCALE 100 UNITS/ML UNIT SUBQ SCH ×4 (09:45→20:45)
--- NOTE | 2017-07-07 14:35 | Infectious Disease Prog Note ---
Infectious Disease Subjective - Review of Systems Service Date: 07/07/17 Subjective: Low grade fever. Infectious Disease Objective - Results Result Diagrams: 07/06/17 05:35 07/06/17 05:35 Recent Labs: Laboratory Last Values WBC 20.7 Th/cmm (4.8-10.8) H* 07/06/17 05:35 RBC 3.89 Mil/cmm (3.80-5.80) 07/06/17 05:35 Hgb 10.2 gm/dL (12-16) L 07/06/17 05:35 Hct 30.5 % (41.0-60) L 07/06/17 05:35 MCV 78.6 fl (80-99) L 07/06/17 05:35 MCH 26.4 pg (27.0-31.0) L 07/06/17 05:35 MCHC Differential 33.5 pg (28.0-36.0) 07/06/17 05:35 RDW 15.9 % (11.5-20.0) 07/06/17 05:35 Plt Count 262 Th/cmm (150-400) 07/06/17 05:35 MPV 6.5 fl 07/06/17 05:35 Neutrophils % 86.1 % (40.0-80.0) H 07/06/17 05:35 Band Neutrophils % 4 % (0-10) 07/05/17 23:55 Lymphocytes % 4.3 % (20.0-50.0) L 07/06/17 05:35 Monocytes % 9.1 % (2.0-10.0) 07/06/17 05:35 Eosinophils % 0.1 % (0.0-5.0) 07/06/17 05:35 Basophils % 0.4 % (0.0-2.0) 07/06/17 05:35 Neutrophils (Manual) 86 % (40-80) H 07/05/17 23:55 Lymphocytes 10 % (20-50) L 07/05/17 23:55 Platelet Estimate ADEQUATE (NORMAL) 07/05/17 23:55 Sodium 131 mEq/L (136-145) L 07/06/17 05:35 Potassium 4.4 mEq/L (3.5-5.1) 07/06/17 05:35 Chloride 96 mEq/L (98-107) L 07/06/17 05:35 Carbon Dioxide 26.5 mEq/L (21.0-31.0) 07/06/17 05:35 Anion Gap 12.9 (7.0-16.0) 07/06/17 05:35 BUN 34 mg/dL (7-25) H 07/06/17 05:35 Creatinine 1.8 mg/dL (0.7-1.3) H 07/06/17 05:35 Est GFR ( Amer) TNP 07/06/17 05:35 Est GFR (Non-Af Amer) TNP 07/06/17 05:35 BUN/Creatinine Ratio 18.9 07/06/17 05:35 Glucose 263 mg/dL (70-105) H D 07/06/17 05:35 POC Glucose 277 MG/DL (70 - 105) H 07/07/17 11:22 Hemoglobin A1c % 8.9 % (4.0-6.0) H 07/05/17 23:55 Whole Bld Lactic Acid 1.74 mmol/L (0.60-1.99) 07/06/17 05:35 Calcium 9.1 mg/dL (8.6-10.3) 07/06/17 05:35 Ammonia 41 umol/L (16-53) 07/05/17 23:55 Urine Source [place] 07/06/17 00:15 Urine Color YELLOW 07/06/17 00:15 Urine Clarity HAZY (CLEAR) 07/06/17 00:15 Urine pH 6.0 (4.6 - 8.0) 07/06/17 00:15 Ur Specific [place] 1.015 (1.005-1.030) 07/06/17 00:15 Urine Protein 100 mg/dL (NEGATIVE) H 07/06/17 00:15 Urine Glucose (UA) >=1000 mg/dL (NEGATIVE) H 07/06/17 00:15 Urine Ketones TRACE mg/dL (NEGATIVE) 07/06/17 00:15 Urine Blood LARGE (NEGATIVE) H 07/06/17 00:15 Urine Nitrate POSITIVE (NEGATIVE) H 07/06/17 00:15 Urine Bilirubin NEGATIVE (NEGATIVE) 07/06/17 00:15 Urine Urobilinogen 0.2 E.U./dL (0.2 - 1.0) 07/06/17 00:15 Ur Leukocyte Esterase MODERATE (NEGATIVE) H 07/06/17 00:15 Urine RBC 2-5 /hpf (0-5) H 07/06/17 00:15 Urine WBC >100 /hpf (0-5) H 07/06/17 00:15 Ur Epithelial Cells FEW /lpf (FEW) 07/06/17 00:15 Urine Bacteria MODERATE /hpf (NONE SEEN) H 07/06/17 00:15 - Physical Exam Vitals and I&O: Vital Signs Temp 100 F 07/07/17 08:00 Pulse 82 07/07/17 13:35 Resp 18 07/07/17 13:35 BP 115/59 07/07/17 09:42 Pulse Ox 95 07/07/17 13:35 Intake & Output 07/06/17 07/07/17 07/07/17 18:59 06:59 18:59 Intake Total 1500 Output Total 1500 Balance 0 Weight (lbs) 90.718 kg 89.811 kg Intake: Intake, IV Amount 1000 Sodium Chloride 0.9% 1, 1000 000 ml @ 100 mls/hr IV . Q10H [facility] Rx#:[id number] Oral 500 Output: Urine 1500 Active Medications: Current Medications Acetaminophen (Tylenol) 650 mg PO Q4H PRN PRN Reason: Fever > 100 Stop: 09/04/17 06:53 Last Admin: 07/06/17 21:09 Dose: 650 mg Acetaminophen (Tylenol) 650 mg PO Q4HR PRN PRN Reason: Pain or Fever >101 Stop: 09/04/17 08:16 Albuterol Sulfate (Albuterol 2.5mg/3ml Neb Ud) 2.5 mg HHN Q4HRT [facility] Stop: 09/04/17 06:59 Last Admin: 07/07/17 13:35 Dose: Not Given Amiodarone HCl (Cordarone) 200 mg PO DAILY [facility] Stop: 09/04/17 08:59 Last Admin: 07/07/17 09:39 Dose: 200 mg Amlodipine Besylate (Norvasc) 10 mg PO DAILY [facility] Stop: 09/04/17 08:59 Last Admin: 07/07/17 09:42 Dose: 10 mg Aspirin (Ecotrin) 81 mg PO DAILY [facility] Stop: 09/04/17 08:59 Last Admin: 07/07/17 09:41 Dose: 81 mg Bisacodyl (Dulcolax 10 Mg Supp) 10 mg RC DAILY PRN PRN Reason: IF MOM INEFFECTIVE Stop: 09/04/17 08:16 Bisacodyl (Dulcolax 5 Mg Ec Tab) 5 mg PO DAILY PRN PRN Reason: Constipation Stop: 09/04/17 08:16 Carvedilol (Coreg) 12.5 mg PO BID [facility] Stop: 09/04/17 08:59 Last Admin: 07/07/17 09:41 Dose: 12.5 mg Dextrose (D50w) 50 ml IVP DAILY PRN PRN Reason: If BS below 70/not tolerate po Stop: 09/04/17 08:16 Dextrose (Glutose 40%) 15 gm PO DAILY PRN PRN Reason: BS below 70 if take po/call md Stop: 09/04/17 08:16 Ferrous Sulfate (Iron) 325 mg PO DAILY [facility] Stop: 09/04/17 08:59 Last Admin: 07/07/17 09:41 Dose: 325 mg Folic Acid (Folate) 1 mg PO DAILY [facility] Stop: 09/04/17 08:59 Last Admin: 07/07/17 09:41 Dose: 1 mg Glucagon (Glucagen) 1 mg IM DAILY PRN PRN Reason: BS below 70 if not take po Hydralazine HCl (Apresoline) 10 mg PO Q6HR PRN PRN Reason: SBP ABOVE 160 Stop: 09/04/17 08:16 Ceftriaxone Sodium 1 gm/ (Sodium Chloride) 50 mls @ 100 mls/hr IV Q24H [facility] Stop: 09/04/17 20:59 Last Admin: 07/06/17 21:12 Dose: 100 mls/hr Sodium Chloride (Nacl 0.9%) 1,000 mls @ 100 mls/hr IV .Q10H [facility] Stop: 09/04/17 06:59 Last Admin: 07/07/17 06:52 Dose: 100 mls/hr Insulin Aspart (Novolog Insulin Sliding Scale) 0 units SUBQ ACHS JESUS PRN Reason: Protocol Stop: 09/04/17 13:14 Last Admin: 07/07/17 12:22 Dose: 6 units Insulin Detemir (Levemir Insulin) 32 units SUBQ HS [facility] Stop: 09/04/17 20:59 Last Admin: 07/06/17 21:11 Dose: 32 units Lorazepam (Ativan) 1 mg IVP Q4HR PRN; Protocol PRN Reason: agitation Stop: 09/05/17 01:46 Magnesium Hydroxide (Milk Of Magnesia) 30 ml PO DAILY PRN PRN Reason: IF NO BM X 2 DAYS Stop: 09/04/17 08:16 Nitrofurantoin Macrocrystals (Macrobid) 100 mg PO DAILY JESUS PRN Reason: Protocol Stop: 09/04/17 08:59 Last Admin: 07/07/17 09:40 Dose: 100 mg Nitroglycerin (Nitrostat) 0.4 mg SL Q5MIN PRN PRN Reason: Chest Pain Stop: 09/04/17 08:16 Ondansetron HCl (Zofran Odt) 4 mg PO Q6HR PRN PRN Reason: Nausea Stop: 09/04/17 08:16 Pantoprazole Sodium (Protonix) 40 mg PO DAILY [facility] Stop: 09/04/17 08:59 Last Admin: 07/07/17 09:40 Dose: 40 mg Quetiapine Fumarate (Seroquel) 12.5 mg PO TID JESUS PRN Reason: Protocol Stop: 09/05/17 08:59 Last Admin: 07/07/17 09:40 Dose: 12.5 mg Risperidone (Risperdal) 0.5 mg PO HS [facility] PRN Reason: Protocol Stop: 09/04/17 20:59 Senna (Senna) 8.6 mg PO BID [facility] Stop: 09/04/17 08:59 Last Admin: 07/07/17 09:42 Dose: 8.6 mg Simvastatin (Zocor) 80 mg PO HS [facility] Stop: 09/04/17 20:59 Last Admin: 07/06/17 21:10 Dose: 80 mg Sodium Bicarbonate (Sodium Bicarbonate) 650 mg PO TID [facility]ESUS PRN Reason: Protocol Stop: 09/04/17 08:59 Last Admin: 07/07/17 09:41 Dose: 650 mg Sodium Phosphate (Fleet Enema) 135 ml RC DAILY PRN PRN Reason: IF MOM/DULCOLAX R INEFFECTIVE Stop: 09/04/17 08:16 Thiamine HCl (Vitamin B1) 100 mg PO DAILY [facility] Stop: 09/04/17 08:59 Last Admin: 07/07/17 09:41 Dose: 100 mg General: no acute distress, well developed, well nourished HEENT: atraumatic, normocephalic, PERRLA, EOMI Neck: supple, no thyromegaly Cardiovascular: S1S2, regular Lungs: clear to auscultation bilaterally, clear to percussion Abdomen: soft, no tender, no distended Extremities: other ([place]), no cyanosis, no clubbing, no edema Neurological: awake, alert Skin: intact Infectious Disease Assmt/Plan - Assessment Assessment: 1. GNR sepsis. 2.. UTI. Pyelonephritis 3. History of prostate CA. 4. Diabetes mellitus type 2. 5. Hypertension. 6. COPD asthma. 7. Hematuria. - Plan Plan: CT abdomen and pelvis, Change rocephin to meropenem. Repeat blood cs. As per patient's son request, he is getting transferred to the [facility] for further care. Nutritional Asmnt/Malnutr-PDOC - Dietary Evaluation Malnutrition Findings (Please click <Entered> for more info): Nutritional Asmnt/Malnutrition Start: 07/06/17 16: 01 Text: Status: Complete Freq: Document 07/06/17 16:01 LCHENG (Rec: 07/06/17 16:23 [id number] Nutritional Asmnt/Malnutrition Patient General Information Nutritional Screening High Risk Consult Diagnosis UTI Pertinent Medical Hx/Surgical Hx HTN, DM, Asthma, COPD, hyperlipidemia, prostate surgery Subjective Information Pt seen sitting up in bed having lunch at time of visit. Pt stated the meal was great, his appetite was good. Per EMR, pt consumed 100% breakfast today. Current Diet Order/ Nutrition Support low sodium Pertinent Medications d50w, iron, folate, novolog, levemir, protonix, senna, nacl 0.9%, vit B1 Pertinent Labs 07/06 na 131, cl 96, bun 34, cr 1.8, glucose 263, POC 426 07/05 glucose 480, POC 410 Nutritional Hx/Data Height 1.8 m Height (Calculated Centimeters) 180.3 Current Weight (lbs) 90.718 kg Weight (Calculated Kilograms) 90.7 Weight (Calculated Grams) 52679.5 [place] Body Weight 172 Body Mass Index (BMI) 27.8 Weight Status Overweight GI Symptoms GI Symptoms None Last BM no record Difficult in: None Skin Integrity/Comment: intact Current %PO Good (75-100%) Estimated Nutritional Goals Calories/Kcals/Kg 25-30 based on IBW 78kg Kcals Calculated 8125-5577 Protein g/k-1.2 Protein Calculated 78-94 Fluid: ml 1950-2340ml (1ml/kcal) Nutritional Problem 1. Problem Problem altered nutrition related lab Etiology hx of DM Signs/Symptoms: glucose 263, POC 426 Malnutrition Alert Protein-Calorie Malnutrition N/A Is there a minimum of two criteria No selected? Query Text:Check all the applicable criteria. A minimum of two criteria are recommended for diagnosis of either severe or non-severe malnutrition. Intervention/Recommendation Comments 1. Recommend adding CCHO-60gm for optimal glycemic control. RN notified. 2. Monitor PO intake, wt, labs and skin integrity 3. F/U as moderate risk in 3-5 days, 07/09-07/11 Expected Outcomes/Goals Expected Outcomes/Goals 1. PO intake to meet at least 75% of nutritional needs. 2. Wt stability, skin to remain intact, labs to approach WNL.
[2017-07-07 17:29] LABS: BASOPHILE ABSOLUTE 0.4 Th/cumm (0-0.2); HEMATOCRIT 29.8 % (41.0-60); HEMOGLOBIN 9.7 gm/dL (12-16); LYMPHOCYTE ABSOLUTE 1.1 Th/cmm (1.5-3.0); MANUAL DIFF REQUIRED? YES; MEAN CELL VOLUME 79.9 fl (80-99); MEAN CORPUSCULAR HGB CONC 32.5 pg (28.0-36.0); MONOCYTE ABSOLUTE 1.6 Th/cmm (0.3-1.0); NEUTROPHILE ABSOLUTE 18.6 Th/cmm (1.8-8.0); PLATELET COUNT 217 Th/cmm (150-400); RED BLOOD COUNT 3.73 Mil/cmm (3.80-5.80); RED CELL DISTRIBUTION WIDTH 15.7 % (11.5-20.0)
[2017-07-07 17:54] LABS: ANION GAP 13.3 (7.0-16.0); BUN - UREA NITROGEN 47 mg/dL (7-25); CARBON DIOXIDE 23.9 mEq/L (21.0-31.0); CHLORIDE 101 mEq/L (98-107); CREATININE - SERUM 2.4 mg/dL (0.7-1.3); GLUCOSE 253 mg/dL (70-105); POTASSIUM SERUM 4.2 mEq/L (3.5-5.1); SODIUM SERUM 134 mEq/L (136-145)
[2017-07-07 17:57] LABS: WHITE BLOOD COUNT 21.7 Th/cmm (4.8-10.8)
[2017-07-07 18:05] LABS: BAND NEUTROPHILE 5 % (0-10); LYMPHOCYTE 4 % (20-50); MONOCYTE 6 % (2-10); NEUTROPHILS 85 % (40-80); PLATELET ESTIMATE ADEQUATE (NORMAL); PLATELET MORPHOLOGY PLATELET CLUMPS SEEN (NORMAL)
[2017-07-07] MEDS: Meropenem 1 GM in Sodium Chloride 0.9% 100 ML IV SCH (18:10)
[2017-07-07] MEDS: Insulin Detemir 100 units/mL 10mL Vial SUBQ SCH (20:46)
--- NOTE | 2017-07-08 00:03 | Discharge Summary ---
DATE OF DISCHARGE: 07/07/2017 HOSPITAL COURSE: The patient became very obtunded and combative last night requiring significant sedation as a result of which he is now sleepy and drowsy and has not eaten well and has been sleeping most of the day. His Alvarado catheter is draining well. It was irrigated yesterday and will be irrigated again today as well as daily to treat and prevent urinary tract infection. PHYSICAL EXAMINATION: VITAL SIGNS: On exam, T-max is 100 degrees, blood pressure 98/54, heart rate 106. ABDOMEN: Soft, nondistended, nontender. Alvarado catheter, no blood. Flanks nontender. EXTREMITIES: No edema. HEART: Heart sounds, no murmur. LABORATORY DATA: None were done today unfortunately and I have ordered them stat, namely CBC, BMP and lactic acid to make sure he is not getting septic. IMPRESSION: 1. Prostate carcinoma, status post radical prostatectomy with bladder augmentation. The Alvarado catheter may be ready to come out, but this decision has to be by the surgeon at [facility] and therefore, we are trying to transfer him there as soon as possible. Meanwhile, the patient has a urinary tract infection most likely, which we are treating with irrigations, awaiting cultures and starting of appropriate antibiotics. 2. Altered level of consciousness, probably related to infection. 3. Diabetes. 4. Hypertension 5. Hyperlipidemia. All posing other risk factors. JOB# [id number]
[2017-07-08] MEDS: Meropenem 1 GM in Sodium Chloride 0.9% 100 ML IV SCH ×3 (01:06→17:25)
[2017-07-08] MEDS: Albuterol Nebulizer 2.5mg/3mL HHN SCH ×7 (01:14→22:35)
[2017-07-08 06:21] LABS: % BASOPHILS 0.8 % (0.0-2.0); % EOSINOPHILS 0.3 % (0.0-5.0); % LYMPHOCYTES 5.3 % (20.0-50.0); % MONOCYTES 5.9 % (2.0-10.0); % NEUTROPHILS 87.7 % (40.0-80.0); BASOPHILE ABSOLUTE 0.1 Th/cumm (0-0.2); HEMATOCRIT 29.3 % (41.0-60); HEMOGLOBIN 9.7 gm/dL (12-16); LYMPHOCYTE ABSOLUTE 0.8 Th/cmm (1.5-3.0); MEAN CELL VOLUME 79.9 fl (80-99); MEAN CORPUSCULAR HEMOGLOBIN 26.4 pg (27.0-31.0); MEAN CORPUSCULAR HGB CONC 33.1 pg (28.0-36.0); MEAN PLATELET VOLUME 7.1 fl; MONOCYTE ABSOLUTE 0.9 Th/cmm (0.3-1.0); NEUTROPHILE ABSOLUTE 14.2 Th/cmm (1.8-8.0); PLATELET COUNT 218 Th/cmm (150-400); RED BLOOD COUNT 3.67 Mil/cmm (3.80-5.80); RED CELL DISTRIBUTION WIDTH 16.2 % (11.5-20.0)
[2017-07-08 06:39] LABS: ALB/GLOB RATIO 0.8 (1.0-1.8); ALBUMIN 2.8 gm/dL (4.2-5.5); ALKALINE PHOSPHATASE 76 U/L (34-104); ANION GAP 11.1 (7.0-16.0); BILIRUBIN,TOTAL 0.3 mg/dL (0.3-1.0); BUN - UREA NITROGEN 44 mg/dL (7-25); CALCIUM SERUM 9.1 mg/dL (8.6-10.3); CARBON DIOXIDE 24.1 mEq/L (21.0-31.0); CHLORIDE 104 mEq/L (98-107); CREATININE - SERUM 1.8 mg/dL (0.7-1.3); GLUCOSE 239 mg/dL (70-105); POTASSIUM SERUM 4.2 mEq/L (3.5-5.1); SGOT 28 U/L (13-39); SGPT/ALT 16 U/L (7-52); SODIUM SERUM 135 mEq/L (136-145); TOTAL PROTEIN,SERUM 6.4 gm/dL (6.0-8.3)
[2017-07-08] MEDS: INSULIN ASPART SLIDING SCALE 100 UNITS/ML UNIT SUBQ SCH ×3 (08:30→21:57)
--- NOTE | 2017-07-08 08:42 | Diagnostic Imaging Report ---
Exam: CT examination of the abdomen pelvis HISTORY: Pyelonephritis Total DLP equals 307 CTDI equals 13.5 Findings: Multiple contiguous thin section of the abdomen pelvis obtained from a lower thorax to pubic symphysis without the administration of oral or intravenous contrast material, no prior studies available for comparison The study somewhat limited due to motion artifacts. The study demonstrates normal aeration of lung parenchyma the bases The liver and spleen intact. There is evidence of previous cholecystectomy. The pancreas is normal. Adrenal glands are normal. The kidneys demonstrate no evidence of obstructive uropathy or nephrolithiasis. 1 cm left renal cyst is noted. Aorta is calcified. 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 Small diverticular microperforation cannot excluded Urinary bladder demonstrates urinary bladder wall thickening with small air collection most likely due to placement of the port catheter. Postsurgical changes anterior abdominal wall Trace of fluid inflammatory changes in the pelvis appreciated. Bony structures demonstrate no evidence for lytic or blastic changes. Fecal impaction the rectum is noted. Mild deformity of the pubic symphysis appreciated. IMPRESSION: 1. Limited examination due to motion artifacts patient was not able to cooperate the procedure 2. Diverticulosis without diverticulitis of sigmoid colon microperforation cannot be excluded there is evidence for edema and mesenteric induration in the lower pelvic area small amount of fluid in the pelvic area 3. Irregularity of the urinary bladder with bladder wall thickening and air collection. Small amount of ascitic fluid in the pelvis noted 4. Status post cholecystectomy
[2017-07-08] MEDS: Ferrous Sulfate 325 MG TAB PO SCH (09:02)
[2017-07-08] MEDS: Pantoprazole 40 mg EC Tab PO SCH (09:02)
--- NOTE | 2017-07-08 15:35 | Internal Medicine Prog Note ---
Internal Medicine Subjective - Subjective Service Date: 07/08/17 Patient seen and examined:: with staff Patient is:: awake Per staff patient has:: tolerating meds Internal Medicine Objective - Results Result Diagrams: 07/08/17 06:00 07/08/17 06:00 Recent Labs: Laboratory Last Values WBC 16.0 Th/cmm (4.8-10.8) H D 07/08/17 06:00 RBC 3.67 Mil/cmm (3.80-5.80) L 07/08/17 06:00 Hgb 9.7 gm/dL (12-16) L 07/08/17 06:00 Hct 29.3 % (41.0-60) L 07/08/17 06:00 MCV 79.9 fl (80-99) L 07/08/17 06:00 MCH 26.4 pg (27.0-31.0) L 07/08/17 06:00 MCHC Differential 33.1 pg (28.0-36.0) 07/08/17 06:00 RDW 16.2 % (11.5-20.0) 07/08/17 06:00 Plt Count 218 Th/cmm (150-400) 07/08/17 06:00 MPV 7.1 fl 07/08/17 06:00 Neutrophils % 87.7 % (40.0-80.0) H 07/08/17 06:00 Band Neutrophils % 5 % (0-10) 07/07/17 17:22 Lymphocytes % 5.3 % (20.0-50.0) L 07/08/17 06:00 Monocytes % 5.9 % (2.0-10.0) 07/08/17 06:00 Eosinophils % 0.3 % (0.0-5.0) 07/08/17 06:00 Basophils % 0.8 % (0.0-2.0) 07/08/17 06:00 Neutrophils (Manual) 85 % (40-80) H 07/07/17 17:22 Lymphocytes 4 % (20-50) L 07/07/17 17: Monocytes 6 % (2-10) 07/07/17 17: Platelet Estimate ADEQUATE (NORMAL) 07/07/17 17: Platelet Morphology PLATELET CLUMPS SEEN (NORMAL) 03/22/18 17:22 Microcytosis 1+ 07/07/17 17:22 RBC Morph Micro Appear ABNORMAL (NORMAL) 07/07/17 17:22 Sodium 135 mEq/L (136-145) L 07/08/17 06:00 Potassium 4.2 mEq/L (3.5-5.1) 07/08/17 06:00 Chloride 104 mEq/L (98-107) 07/08/17 06:00 Carbon Dioxide 24.1 mEq/L (21.0-31.0) 07/08/17 06:00 Anion Gap 11.1 (7.0-16.0) 07/08/17 06:00 BUN 44 mg/dL (7-25) H 07/08/17 06:00 Creatinine 1.8 mg/dL (0.7-1.3) H 07/08/17 06:00 Est GFR ( Amer) TNP 07/08/17 06:00 Est GFR (Non-Af Amer) TNP 07/08/17 06:00 BUN/Creatinine Ratio 24.4 07/08/17 06:00 Glucose 239 mg/dL (70-105) H 07/08/17 06:00 POC Glucose 167 MG/DL (70 - 105) H 07/08/17 11:23 Hemoglobin A1c % 8.9 % (4.0-6.0) H 07/05/17 23:55 Whole Bld Lactic Acid 1.00 mmol/L (0.60-1.99) 07/07/17 17:22 Calcium 9.1 mg/dL (8.6-10.3) 07/08/17 06:00 Total Bilirubin 0.3 mg/dL (0.3-1.0) 07/08/17 06:00 AST 28 U/L (13-39) 07/08/17 06:00 ALT 16 U/L (7-52) 07/08/17 06:00 Alkaline Phosphatase 76 U/L (34-104) 07/08/17 06:00 Ammonia 41 umol/L (16-53) 07/05/17 23:55 Total Protein 6.4 gm/dL (6.0-8.3) 07/08/17 06:00 Albumin 2.8 gm/dL (4.2-5.5) L 07/08/17 06:00 Globulin 3.6 gm/dL 07/08/17 06:00 Albumin/Globulin Ratio 0.8 (1.0-1.8) L 07/08/17 06:00 Urine Source [place] 07/06/17 00:15 Urine Color YELLOW 07/06/17 00:15 Urine Clarity HAZY (CLEAR) 07/06/17 00:15 Urine pH 6.0 (4.6 - 8.0) 07/06/17 00:15 Ur Specific [place] 1.015 (1.005-1.030) 07/06/17 00:15 Urine Protein 100 mg/dL (NEGATIVE) H 07/06/17 00:15 Urine Glucose (UA) >=1000 mg/dL (NEGATIVE) H 07/06/17 00:15 Urine Ketones TRACE mg/dL (NEGATIVE) 07/06/17 00:15 Urine Blood LARGE (NEGATIVE) H 07/06/17 00:15 Urine Nitrate POSITIVE (NEGATIVE) H 07/06/17 00:15 Urine Bilirubin NEGATIVE (NEGATIVE) 07/06/17 00:15 Urine Urobilinogen 0.2 E.U./dL (0.2 - 1.0) 07/06/17 00:15 Ur Leukocyte Esterase MODERATE (NEGATIVE) H 07/06/17 00:15 Urine RBC 2-5 /hpf (0-5) H 07/06/17 00:15 Urine WBC >100 /hpf (0-5) H 07/06/17 00:15 Ur Epithelial Cells FEW /lpf (FEW) 07/06/17 00:15 Urine Bacteria MODERATE /hpf (NONE SEEN) H 07/06/17 00:15 - Physical Exam Vitals and I&O: Vital Signs Temp 97.4 F 07/08/17 04:00 Pulse 66 07/08/17 12:55 Resp 18 07/08/17 12:55 BP 137/68 07/08/17 09:03 Pulse Ox 94 07/08/17 12:55 Intake & Output 07/07/17 07/08/17 07/08/17 18:59 06:59 18:59 Intake Total 340 Output Total 702 Balance -362 Weight (lbs) 197 lb 5 oz 197 lb Intake: Intake, IV Amount 200 Meropenem 1 gm In Sodium 200 Chloride 0.9% 100 ml @ 100 mls/hr IV Q8H [facility] Rx# :[id number] Oral 140 Output: Urine 700 Stool 2 Other: Weight Source Bedscale Estimated Active Medications: Current Medications Acetaminophen (Tylenol) 650 mg PO Q4H PRN PRN Reason: Fever > 100 Stop: 09/04/17 06:53 Last Admin: 07/06/17 21:09 Dose: 650 mg Acetaminophen (Tylenol) 650 mg PO Q4HR PRN PRN Reason: Pain or Fever >101 Stop: 09/04/17 08:16 Albuterol Sulfate (Albuterol 2.5mg/3ml Neb Ud) 2.5 mg HHN Q4HRT [facility] Stop: 09/04/17 06:59 Last Admin: 07/08/17 15:14 Dose: Not Given Amiodarone HCl (Cordarone) 200 mg PO DAILY [facility] Stop: 09/04/17 08:59 Last Admin: 07/08/17 09:03 Dose: 200 mg Amlodipine Besylate (Norvasc) 10 mg PO DAILY [facility] Stop: 09/04/17 08:59 Last Admin: 07/08/17 09:03 Dose: 10 mg Aspirin (Ecotrin) 81 mg PO DAILY [facility] Stop: 09/04/17 08:59 Last Admin: 07/08/17 09:02 Dose: 81 mg Bisacodyl (Dulcolax 10 Mg Supp) 10 mg RC DAILY PRN PRN Reason: IF MOM INEFFECTIVE Stop: 09/04/17 08:16 Bisacodyl (Dulcolax 5 Mg Ec Tab) 5 mg PO DAILY PRN PRN Reason: Constipation Stop: 09/04/17 08:16 Carvedilol (Coreg) 12.5 mg PO BID [facility] Stop: 09/04/17 08:59 Last Admin: 07/08/17 09:02 Dose: 12.5 mg Dextrose (D50w) 50 ml IVP DAILY PRN PRN Reason: If BS below 70/not tolerate po Stop: 09/04/17 08:16 Dextrose (Glutose 40%) 15 gm PO DAILY PRN PRN Reason: BS below 70 if take po/call md Stop: 09/04/17 08:16 Ferrous Sulfate (Iron) 325 mg PO DAILY [facility] Stop: 09/04/17 08:59 Last Admin: 07/08/17 09:02 Dose: 325 mg Folic Acid (Folate) 1 mg PO DAILY [facility] Stop: 09/04/17 08:59 Last Admin: 07/08/17 09:02 Dose: 1 mg Glucagon (Glucagen) 1 mg IM DAILY PRN PRN Reason: BS below 70 if not take po Hydralazine HCl (Apresoline) 10 mg PO Q6HR PRN PRN Reason: SBP ABOVE 160 Stop: 09/04/17 08:16 Sodium Chloride (Nacl 0.9%) 1,000 mls @ 100 mls/hr IV .Q10H [facility] Stop: 09/04/17 06:59 Last Admin: 07/07/17 06:52 Dose: 100 mls/hr Meropenem 1 gm/ Sodium (Chloride) 100 mls @ 100 mls/hr IV Q8H [facility] Stop: 09/05/17 16:59 Last Admin: 07/08/17 09:09 Dose: 100 mls/hr Insulin Aspart (Novolog Insulin Sliding Scale) 0 units SUBQ ACHS [facility] PRN Reason: Protocol Stop: 09/04/17 13:14 Last Admin: 07/08/17 12:13 Dose: 2 units Insulin Detemir (Levemir Insulin) 32 units SUBQ HS [facility] Stop: 09/04/17 20:59 Last Admin: 07/07/17 20:46 Dose: 32 units Lorazepam (Ativan) 1 mg IVP Q4HR PRN; Protocol PRN Reason: agitation Stop: 09/05/17 01:46 Magnesium Hydroxide (Milk Of Magnesia) 30 ml PO DAILY PRN PRN Reason: IF NO BM X 2 DAYS Stop: 09/04/17 08:16 Nitrofurantoin Macrocrystals (Macrobid) 100 mg PO DAILY [facility] PRN Reason: Protocol Stop: 09/04/17 08:59 Last Admin: 07/08/17 09:02 Dose: 100 mg Nitroglycerin (Nitrostat) 0.4 mg SL Q5MIN PRN PRN Reason: Chest Pain Stop: 09/04/17 08:16 Ondansetron HCl (Zofran Odt) 4 mg PO Q6HR PRN PRN Reason: Nausea Stop: 09/04/17 08:16 Pantoprazole Sodium (Protonix) 40 mg PO DAILY [facility] Stop: 09/04/17 08:59 Last Admin: 07/08/17 09:02 Dose: 40 mg Quetiapine Fumarate (Seroquel) 12.5 mg PO TID [facility] PRN Reason: Protocol Stop: 09/05/17 08:59 Last Admin: 07/08/17 15:13 Dose: Not Given Risperidone (Risperdal) 0.5 mg PO HS [facility] PRN Reason: Protocol Stop: 09/04/17 20:59 Last Admin: 07/07/17 20:45 Dose: 0.5 mg Senna (Senna) 8.6 mg PO BID [facility] Stop: 09/04/17 08:59 Last Admin: 07/08/17 09:02 Dose: 8.6 mg Simvastatin (Zocor) 80 mg PO HS [facility] Stop: 09/04/17 20:59 Last Admin: 07/07/17 20:43 Dose: 80 mg Sodium Bicarbonate (Sodium Bicarbonate) 650 mg PO TID [facility] PRN Reason: Protocol Stop: 09/04/17 08:59 Last Admin: 07/08/17 15:12 Dose: 650 mg Sodium Phosphate (Fleet Enema) 135 ml RC DAILY PRN PRN Reason: IF MOM/DULCOLAX R INEFFECTIVE Stop: 09/04/17 08:16 Thiamine HCl (Vitamin B1) 100 mg PO DAILY [facility] Stop: 09/04/17 08:59 Last Admin: 07/08/17 09:02 Dose: 100 mg General: weak, alert HEENT: NC/AT, PERRLA Neck: Supple Cardiovascular: RRR, Normal S1, Normal S2 Abdomen: soft, non-tender, non-distended, positive bowel sound Internal Medicine Assmt/Plan - Assessment Assessment: 1. Sepsis. 2.. UTI. Pyelonephritis 3. History of prostate CA. 4. Diabetes mellitus type 2. 5. Hypertension. 6. COPD asthma. - Plan Plan: continue ivabx as per id continue current orders Nutritional Asmnt/Malnutr-PDOC - Dietary Evaluation Malnutrition Findings (Please click <Entered> for more info): Nutritional Asmnt/Malnutrition Start: 07/06/17 16: 01 Text: Status: Complete Freq: Document 07/06/17 16:01 RICCARDO (Rec: 07/06/17 16:23 [id number]) Nutritional Asmnt/Malnutrition Patient General Information Nutritional Screening High Risk Consult Diagnosis UTI Pertinent Medical Hx/Surgical Hx HTN, DM, Asthma, COPD, hyperlipidemia, prostate surgery Subjective Information Pt seen sitting up in bed having lunch at time of visit. Pt stated the meal was great, his appetite was good. Per EMR, pt consumed 100% breakfast today. Current Diet Order/ Nutrition Support low sodium Pertinent Medications d50w, iron, folate, novolog, levemir, protonix, senna, nacl 0.9%, vit B1 Pertinent Labs 07/06 na 131, cl 96, bun 34, cr 1.8, glucose 263, POC 426 07/05 glucose 480, POC 410 Nutritional Hx/Data Height 5 ft 11 in Height (Calculated Centimeters) 180.3 Current Weight (lbs) 200 lb Weight (Calculated Kilograms) 90.7 Weight (Calculated Grams) 79390.5 [place] Body Weight 172 Body Mass Index (BMI) 27.8 Weight Status Overweight GI Symptoms GI Symptoms None Last BM no record Difficult in: None Skin Integrity/Comment: intact Current %PO Good (75-100%) Estimated Nutritional Goals Calories/Kcals/Kg 25-30 based on IBW 78kg Kcals Calculated 3207-7852 Protein g/k-1.2 Protein Calculated 78-94 Fluid: ml 1950-2340ml (1ml/kcal) Nutritional Problem 1. Problem Problem altered nutrition related lab Etiology hx of DM Signs/Symptoms: glucose 263, POC 426 Malnutrition Alert Protein-Calorie Malnutrition N/A Is there a minimum of two criteria No selected? Query Text:Check all the applicable criteria. A minimum of two criteria are recommended for diagnosis of either severe or non-severe malnutrition. Intervention/Recommendation Comments 1. Recommend adding CCHO-60gm for optimal glycemic control. RN notified. 2. Monitor PO intake, wt, labs and skin integrity 3. F/U as moderate risk in 3-5 days, 07/09-07/11 Expected Outcomes/Goals Expected Outcomes/Goals 1. PO intake to meet at least 75% of nutritional needs. 2. Wt stability, skin to remain intact, labs to approach WNL.
--- NOTE | 2017-07-08 19:57 | Progress Notes ---
DATE: UROLOGY PROGRESS NOTE SUBJECTIVE: The patient is less combative and obtunded today, but is sleeping most of the time without any sedatives. His intake has been poor because of that. The bladder is being irrigated through the [place]. Attempts to transfer to [facility] have been unsuccessful so far. I have asked the nurses to call the surgeon who did the procedure and maybe he will accept him sooner. PHYSICAL EXAMINATION: VITAL SIGNS: On exam, heart rate 66, blood pressure 137/68, temperature 97.4. No fever in the last few days. ABDOMEN: Soft, nontender. Bladder is not distended. [place] catheter functioning well with irrigation daily. Flank, nontender. EXTREMITIES: No edema. LABORATORY DATA: Blood is growing out E. coli. Urine is growing out 2 other organisms including Klebsiella and another called Raoultella, somewhat unusual and new. White count has come down to 16,000 from 21.7, down from 29 earlier trending in the right direction. Hemoglobin stable at 9.7. No bands reported. Creatinine down to 1.8, again improving and going in the right direction. Glucose numbers are not so good at 167 and 257. IMPRESSION: 1. Urinary tract infection, maybe pyelonephritis. Postop radical prostatectomy and bladder augmentation. The patient needs to be transferred to [facility] as soon as possible to manage the catheter and the diversion or the augmentation appropriately. Meanwhile, we will continue the irrigation and the Infectious doctors have put him on meropenem and Zosyn that can continue as well. I have stopped the nitrofurantoin to which he is resistant and is not needed. 2. Prostate cancer, now postop, hopefully resolved. 3. Altered level of consciousness, somewhat improved. 4. Diabetes, fair control. 5. Hyperlipidemia and hypertension. No change. JOB# [id number]
[2017-07-08] MEDS: Insulin Detemir 100 units/mL 10mL Vial SUBQ SCH (21:56)
[2017-07-08] MEDS: Sodium Chloride 0.9% 1,000 ML IV SCH (22:20)
[2017-07-09] MEDS: Meropenem 1 GM in Sodium Chloride 0.9% 100 ML IV SCH ×2 (00:36→10:13)
[2017-07-09] MEDS: Albuterol Nebulizer 2.5mg/3mL HHN SCH ×4 (02:35→14:45)
[2017-07-09] MEDS: INSULIN ASPART SLIDING SCALE 100 UNITS/ML UNIT SUBQ SCH ×2 (06:57→12:28)
[2017-07-09 07:04] LABS: % BASOPHILS 0.6 % (0.0-2.0); % EOSINOPHILS 0.9 % (0.0-5.0); % NEUTROPHILS 84.5 % (40.0-80.0); BASOPHILE ABSOLUTE 0.1 Th/cumm (0-0.2); EOSINOPHILE ABSOLUTE 0.1 Th/cmm (0.1-0.4); HEMATOCRIT 26.9 % (41.0-60); HEMOGLOBIN 8.8 gm/dL (12-16); LYMPHOCYTE ABSOLUTE 0.8 Th/cmm (1.5-3.0); MEAN CORPUSCULAR HEMOGLOBIN 25.7 pg (27.0-31.0); MEAN CORPUSCULAR HGB CONC 32.6 pg (28.0-36.0); MEAN PLATELET VOLUME 6.9 fl; MONOCYTE ABSOLUTE 0.8 Th/cmm (0.3-1.0); NEUTROPHILE ABSOLUTE 10.1 Th/cmm (1.8-8.0); PLATELET COUNT 257 Th/cmm (150-400); RED CELL DISTRIBUTION WIDTH 15.8 % (11.5-20.0); WHITE BLOOD COUNT 11.9 Th/cmm (4.8-10.8)
[2017-07-09 07:22] LABS: ALB/GLOB RATIO 0.8 (1.0-1.8); ALBUMIN 2.6 gm/dL (4.2-5.5); ALKALINE PHOSPHATASE 85 U/L (34-104); BILIRUBIN,TOTAL 0.3 mg/dL (0.3-1.0); BUN - UREA NITROGEN 33 mg/dL (7-25); CALCIUM SERUM 8.7 mg/dL (8.6-10.3); CARBON DIOXIDE 26.9 mEq/L (21.0-31.0); CHLORIDE 107 mEq/L (98-107); CREATININE - SERUM 1.5 mg/dL (0.7-1.3); GLUCOSE 60 mg/dL (70-105); POTASSIUM SERUM 3.9 mEq/L (3.5-5.1); SGOT 68 U/L (13-39); SGPT/ALT 36 U/L (7-52); SODIUM SERUM 139 mEq/L (136-145); TOTAL PROTEIN,SERUM 5.9 gm/dL (6.0-8.3)
[2017-07-09] MEDS: Pantoprazole 40 mg EC Tab PO SCH (10:11)
[2017-07-09] MEDS: Ferrous Sulfate 325 MG TAB PO SCH (10:12)
--- NOTE | 2017-07-09 10:51 | General Progress Note ---
Subjective - Review of Systems Events since last encounter: in no distress patient awake no signs of pain Objective - Results Result Diagrams: 07/09/17 06:40 07/09/17 06:40 Recent Labs: Laboratory Last Values WBC 11.9 Th/cmm (4.8-10.8) H 07/09/17 06:40 RBC 3.40 Mil/cmm (3.80-5.80) L 07/09/17 06:40 Hgb 8.8 gm/dL (12-16) L 07/09/17 06:40 Hct 26.9 % (41.0-60) L 07/09/17 06:40 MCV 79.0 fl (80-99) L 07/09/17 06:40 MCH 25.7 pg (27.0-31.0) L 07/09/17 06:40 MCHC Differential 32.6 pg (28.0-36.0) 07/09/17 06:40 RDW 15.8 % (11.5-20.0) 07/09/17 06:40 Plt Count 257 Th/cmm (150-400) 07/09/17 06:40 MPV 6.9 fl 07/09/17 06:40 Neutrophils % 84.5 % (40.0-80.0) H 07/09/17 06:40 Band Neutrophils % 5 % (0-10) 07/07/17 17:22 Lymphocytes % 7.0 % (20.0-50.0) L 07/09/17 06:40 Monocytes % 7.0 % (2.0-10.0) 07/09/17 06:40 Eosinophils % 0.9 % (0.0-5.0) 07/09/17 06:40 Basophils % 0.6 % (0.0-2.0) 07/09/17 06:40 Neutrophils (Manual) 85 % (40-80) H 07/07/17 17: Lymphocytes 4 % (20-50) L 07/07/17 17:22 Monocytes 6 % (2-10) 07/07/17 17:22 Platelet Estimate ADEQUATE (NORMAL) 07/07/17 17:22 Platelet Morphology PLATELET CLUMPS SEEN (NORMAL) 07/07/17 17:22 Microcytosis 1+ 07/07/17 17:22 RBC Morph Micro Appear ABNORMAL (NORMAL) 07/07/17 17:22 Sodium 139 mEq/L (136-145) 07/09/17 06:40 Potassium 3.9 mEq/L (3.5-5.1) 07/09/17 06:40 Chloride 107 mEq/L (98-107) 07/09/17 06:40 Carbon Dioxide 26.9 mEq/L (21.0-31.0) 07/09/17 06:40 Anion Gap 9.0 (7.0-16.0) 07/09/17 06:40 BUN 33 mg/dL (7-25) H 07/09/17 06:40 Creatinine 1.5 mg/dL (0.7-1.3) H 07/09/17 06:40 Est GFR ( Amer) TNP 07/09/17 06:40 Est GFR (Non-Af Amer) TNP 07/09/17 06:40 BUN/Creatinine Ratio 22.0 07/09/17 06:40 Glucose 60 mg/dL (70-105) L 07/09/17 06:40 POC Glucose 52 MG/DL (70 - 105) L 07/09/17 06:50 Hemoglobin A1c % 8.9 % (4.0-6.0) H 07/05/17 23:55 Whole Bld Lactic Acid 1.00 mmol/L (0.60-1.99) 07/07/17 17:22 Calcium 8.7 mg/dL (8.6-10.3) 07/09/17 06:40 Total Bilirubin 0.3 mg/dL (0.3-1.0) 07/09/17 06:40 AST 68 U/L (13-39) H 07/09/17 06:40 ALT 36 U/L (7-52) 07/09/17 06:40 Alkaline Phosphatase 85 U/L (34-104) 07/09/17 06:40 Ammonia 41 umol/L (16-53) 07/05/17 23:55 Total Protein 5.9 gm/dL (6.0-8.3) L 07/09/17 06:40 Albumin 2.6 gm/dL (4.2-5.5) L 07/09/17 06:40 Globulin 3.3 gm/dL 07/09/17 06:40 Albumin/Globulin Ratio 0.8 (1.0-1.8) L 07/09/17 06:40 Urine Source [place] 07/06/17 00:15 Urine Color YELLOW 07/06/17 00:15 Urine Clarity HAZY (CLEAR) 07/06/17 00:15 Urine pH 6.0 (4.6 - 8.0) 07/06/17 00:15 Ur Specific [place] 1.015 (1.005-1.030) 07/06/17 00:15 Urine Protein 100 mg/dL (NEGATIVE) H 07/06/17 00:15 Urine Glucose (UA) >=1000 mg/dL (NEGATIVE) H 07/06/17 00:15 Urine Ketones TRACE mg/dL (NEGATIVE) 07/06/17 00:15 Urine Blood LARGE (NEGATIVE) H 07/06/17 00:15 Urine Nitrate POSITIVE (NEGATIVE) H 07/06/17 00:15 Urine Bilirubin NEGATIVE (NEGATIVE) 07/06/17 00:15 Urine Urobilinogen 0.2 E.U./dL (0.2 - 1.0) 07/06/17 00:15 Ur Leukocyte Esterase MODERATE (NEGATIVE) H 07/06/17 00:15 Urine RBC 2-5 /hpf (0-5) H 07/06/17 00:15 Urine WBC >100 /hpf (0-5) H 07/06/17 00:15 Ur Epithelial Cells FEW /lpf (FEW) 07/06/17 00:15 Urine Bacteria MODERATE /hpf (NONE SEEN) H 07/06/17 00:15 - Physical Exam Vitals and I&O: Vital Signs Temp 97.8 F 07/09/17 04:00 Pulse 69 07/09/17 10:13 Resp 14 07/09/17 07:05 BP 100/47 07/09/17 10:12 Pulse Ox 99 07/09/17 07:05 Intake & Output 07/08/17 07/09/17 07/09/17 18:59 06:59 18:59 Intake Total 200 650 Output Total 1401 Balance 200 -751 Weight (lbs) 89.358 kg 89.358 kg Intake: Intake, IV Amount 200 100 Meropenem 1 gm In Sodium 200 100 Chloride 0.9% 100 ml @ 100 mls/hr IV Q8H [facility] Rx# :[id number] Oral 550 Output: Urine 1401 Other: Weight Source Estimated Bedscale Active Medications: Current Medications Acetaminophen (Tylenol) 650 mg PO Q4H PRN PRN Reason: Fever > 100 Stop: 09/04/17 06:53 Last Admin: 07/06/17 21:09 Dose: 650 mg Acetaminophen (Tylenol) 650 mg PO Q4HR PRN PRN Reason: Pain or Fever >101 Stop: 09/04/17 08:16 Albuterol Sulfate (Albuterol 2.5mg/3ml Neb Ud) 2.5 mg HHN Q4HRT [facility] Stop: 09/04/17 06:59 Last Admin: 07/09/17 07:05 Dose: 2.5 mg Amiodarone HCl (Cordarone) 200 mg PO DAILY [facility] Stop: 09/04/17 08:59 Last Admin: 07/09/17 10:13 Dose: 200 mg Amlodipine Besylate (Norvasc) 10 mg PO DAILY [facility] Stop: 09/04/17 08:59 Last Admin: 07/09/17 10:12 Dose: Not Given Aspirin (Ecotrin) 81 mg PO DAILY [facility] Stop: 09/04/17 08:59 Last Admin: 07/09/17 10:12 Dose: 81 mg Bisacodyl (Dulcolax 10 Mg Supp) 10 mg RC DAILY PRN PRN Reason: IF MOM INEFFECTIVE Stop: 09/04/17 08:16 Bisacodyl (Dulcolax 5 Mg Ec Tab) 5 mg PO DAILY PRN PRN Reason: Constipation Stop: 09/04/17 08:16 Carvedilol (Coreg) 12.5 mg PO BID [facility] Stop: 09/04/17 08:59 Last Admin: 07/08/17 17:27 Dose: 12.5 mg Dextrose (D50w) 50 ml IVP DAILY PRN PRN Reason: If BS below 70/not tolerate po Stop: 09/04/17 08:16 Dextrose (Glutose 40%) 15 gm PO DAILY PRN PRN Reason: BS below 70 if take po/call md Stop: 09/04/17 08:16 Ferrous Sulfate (Iron) 325 mg PO DAILY [facility] Stop: 09/04/17 08:59 Last Admin: 07/09/17 10:12 Dose: 325 mg Folic Acid (Folate) 1 mg PO DAILY [facility] Stop: 09/04/17 08:59 Last Admin: 07/09/17 10:12 Dose: 1 mg Glucagon (Glucagen) 1 mg IM DAILY PRN PRN Reason: BS below 70 if not take po Hydralazine HCl (Apresoline) 10 mg PO Q6HR PRN PRN Reason: SBP ABOVE 160 Stop: 09/04/17 08:16 Sodium Chloride (Nacl 0.9%) 1,000 mls @ 100 mls/hr IV .Q10H [facility] Stop: 09/04/17 06:59 Last Admin: 07/08/17 22:20 Dose: 100 mls/hr Meropenem 1 gm/ Sodium (Chloride) 100 mls @ 100 mls/hr IV Q8H [facility] Stop: 09/05/17 16:59 Last Admin: 07/09/17 10:13 Dose: 100 mls/hr Insulin Aspart (Novolog Insulin Sliding Scale) 0 units SUBQ ACHS [facility] PRN Reason: Protocol Stop: 09/04/17 13:14 Last Admin: 07/09/17 06:57 Dose: Not Given Insulin Detemir (Levemir Insulin) 32 units SUBQ HS [facility] Stop: 09/04/17 20:59 Last Admin: 07/08/17 21:56 Dose: 32 units Lorazepam (Ativan) 1 mg IVP Q4HR PRN; Protocol PRN Reason: agitation Stop: 09/05/17 01:46 Last Admin: 07/09/17 00:45 Dose: 1 mg Magnesium Hydroxide (Milk Of Magnesia) 30 ml PO DAILY PRN PRN Reason: IF NO BM X 2 DAYS Stop: 09/04/17 08:16 Nitroglycerin (Nitrostat) 0.4 mg SL Q5MIN PRN PRN Reason: Chest Pain Stop: 09/04/17 08:16 Ondansetron HCl (Zofran Odt) 4 mg PO Q6HR PRN PRN Reason: Nausea Stop: 09/04/17 08:16 Pantoprazole Sodium (Protonix) 40 mg PO DAILY [facility] Stop: 09/04/17 08:59 Last Admin: 07/09/17 10:11 Dose: 40 mg Quetiapine Fumarate (Seroquel) 12.5 mg PO TID [facility] PRN Reason: Protocol Stop: 09/05/17 08:59 Last Admin: 07/09/17 10:11 Dose: 12.5 mg Risperidone (Risperdal) 0.5 mg PO HS [facility] PRN Reason: Protocol Stop: 09/04/17 20:59 Last Admin: 07/08/17 22:22 Dose: 0.5 mg Senna (Senna) 8.6 mg PO BID [facility] Stop: 09/04/17 08:59 Last Admin: 07/09/17 10:11 Dose: 8.6 mg Simvastatin (Zocor) 80 mg PO HS [facility] Stop: 09/04/17 20:59 Last Admin: 07/08/17 21:52 Dose: 80 mg Sodium Bicarbonate (Sodium Bicarbonate) 650 mg PO TID [facility] PRN Reason: Protocol Stop: 09/04/17 08:59 Last Admin: 07/09/17 10:11 Dose: 650 mg Sodium Phosphate (Fleet Enema) 135 ml RC DAILY PRN PRN Reason: IF MOM/DULCOLAX R INEFFECTIVE Stop: 09/04/17 08:16 Thiamine HCl (Vitamin B1) 100 mg PO DAILY [facility] Stop: 09/04/17 08:59 Last Admin: 07/09/17 10:12 Dose: 100 mg Nutritional Asmnt/Malnutr-PDOC - Dietary Evaluation Malnutrition Findings (Please click <Entered> for more info): Nutritional Asmnt/Malnutrition Start: 07/06/17 16: 01 Text: Status: Complete Freq: Document 07/06/17 16:01 VLAD (Rec: 07/06/17 16:23 [id number]) Nutritional Asmnt/Malnutrition Patient General Information Nutritional Screening High Risk Consult Diagnosis UTI Pertinent Medical Hx/Surgical Hx HTN, DM, Asthma, COPD, hyperlipidemia, prostate surgery Subjective Information Pt seen sitting up in bed having lunch at time of visit. Pt stated the meal was great, his appetite was good. Per EMR, pt consumed 100% breakfast today. Current Diet Order/ Nutrition Support low sodium Pertinent Medications d50w, iron, folate, novolog, levemir, protonix, senna, nacl 0.9%, vit B1 Pertinent Labs 07/06 na 131, cl 96, bun 34, cr 1.8, glucose 263, POC 426 07/05 glucose 480, POC 410 Nutritional Hx/Data Height 1.8 m Height (Calculated Centimeters) 180.3 Current Weight (lbs) 90.718 kg Weight (Calculated Kilograms) 90.7 Weight (Calculated Grams) 30668.5 [place] Body Weight 172 Body Mass Index (BMI) 27.8 Weight Status Overweight GI Symptoms GI Symptoms None Last BM no record Difficult in: None Skin Integrity/Comment: intact Current %PO Good (75-100%) Estimated Nutritional Goals Calories/Kcals/Kg 25-30 based on IBW 78kg Kcals Calculated 9558-6886 Protein g/k-1.2 Protein Calculated 78-94 Fluid: ml 1950-2340ml (1ml/kcal) Nutritional Problem 1. Problem Problem altered nutrition related lab Etiology hx of DM Signs/Symptoms: glucose 263, POC 426 Malnutrition Alert Protein-Calorie Malnutrition N/A Is there a minimum of two criteria No selected? Query Text:Check all the applicable criteria. A minimum of two criteria are recommended for diagnosis of either severe or non-severe malnutrition. Intervention/Recommendation Comments 1. Recommend adding CCHO-60gm for optimal glycemic control. RN notified. 2. Monitor PO intake, wt, labs and skin integrity 3. F/U as moderate risk in 3-5 days, 07/09-07/11 Expected Outcomes/Goals Expected Outcomes/Goals 1. PO intake to meet at least 75% of nutritional needs. 2. Wt stability, skin to remain intact, labs to approach WNL.
--- NOTE | 2017-07-09 20:44 | Progress Notes ---
DATE: 07/09/2017 SUBJECTIVE: The patient is stable with the bladder irrigations putting out a large amount of urine last night and yellow with occasional mucus without any blood. He denies any pain. His intake is poor and therefore the sugar levels have been rather low. Finally, he has been accepted at [facility] for the transfer and will be sent there today some time. OBJECTIVE: VITAL SIGNS: Pulse rate 68, blood pressure 100/47, temperature 97.8. No fever in the last 24 hours. ABDOMEN: Soft, nontender, and nondistended. GENITOURINARY: Bladder is decompressed. Alvarado catheter draining well. EXTREMITIES: No edema. CARDIAC: Heart sound sinus rhythm. LABORATORY WORK: Hemoglobin 8.8, white count 11.9, improving; hemoglobin gradually drifting down. Electrolytes are normal. BUN 33, creatinine 1.5. Sugar 82 and 52 this morning and the other one was 60, again because of poor intake. Creatinine is the lowest it has been since admission and seems as though the treatment of infection and irrigation of the bladder have helped significantly. IMPRESSION: 1. Bladder augmentation and radical prostatectomy for prostate cancer stabilizing after urinary tract infection and sepsis, growing Klebsiella in the urine and Escherichia coli in the blood. 2. Altered level of consciousness, improved with improvement in sepsis. 3. Diabetes, presently sugars on the low side. 4. Hypertension, controlled very well. 5. Hyperlipidemia. No change. JOB# [id number]
--- NOTE | 2017-07-10 18:08 | Progress Notes ---
DATE: 07/08/2017 PSYCHIATRIC PROGRESS NOTE SUBJECTIVE: Chart reviewed and the patient interviewed. Also discussed the patient's condition with the staff and reviewed records on labs. The patient still has periods of agitation and aggression, but seems to be less than before. The patient also is interacting slightly more, but he still seems to be at times confused. He also is compliant with taking his medications and no side effects of medications. ASSESSMENT: We will continue Ativan on a p.r.n. basis and we will continue to follow up. [facility]# [id number]
== END 2017-07-09 15:30 | disposition short-term general hospital (02) | DRG 871 ==
LOC: ER 22:18 → MSI 07-06 02:25 → TELE 07-08 13:50
PROVIDERS: ADMIT Internal Medicine; ATTEND Internal Medicine
DX: A41.51 Sepsis due to Escherichia coli [E. coli] (principal); G93.41 Metabolic encephalopathy; J44.9 Chronic obstructive pulmonary disease, unspecified; E11.9 Type 2 diabetes mellitus without complications; N12 Tubulo-interstitial nephritis, not specified as acute or chronic; I10 Essential (primary) hypertension; F29 Unspecified psychosis not due to a substance or known physiological condition; R31.9 Hematuria, unspecified; E78.5 Hyperlipidemia, unspecified; Z88.5 Allergy status to narcotic agent; Z79.4 Long term (current) use of insulin; Z85.46 Personal history of malignant neoplasm of prostate
CPT/HCPCS: 36415-UA; 71045-TC; 80048-TC; 80053-TC; 81001-TC; 82140-TC; 82948-90; 83036-90; 83605; 85007-TC; 85025-TC; 85027-TC; 87086-90; 93005; 94640; 94760; A4217; J0456; J0696; J1815; J2060; J2185; J7030; J7613; X7704; Z7610